=== PATIENT | male | born 1945 | race African-American/Black ===

== ENCOUNTER 2016-05-30 10:54 | Emergency (ER) | payer OTHER, BC ==
--- NOTE | 2016-05-30 12:03 | ER Document Report ---
ED Medical Screen (RME) - General Chief Complaint: Dizziness Stated Complaint: POSSIBLE SYNCOPE Notes: This 70-year-old male patient brought to the emergency room by EMS for dizzy spell that started while he was walking on a treadmill in the gym. He had been walking about 20 minutes when the symptoms started and he got himself to a sitting position. EMS showed up and did tilts which were reportedly positive. He reports the symptoms lasted total of 10-12 minutes and then resolved. They did not resolve immediately but slowly resolved. He also noted his lef jerking or quivering at one point. He does have a history of hypertension, hyperlipidemia, and is being worked up for tremor. He is also has an appointment with a territory business manager for constipation issues. There was no chest pain, no shortness of breath, at this time he feels completely normal I have greeted and performed a rapid initial assessment of this patient. A comprehensive ED assessment and evaluation of the patient, analysis of test results and completion of the medical decision making process will be conducted by additional ED providers. TRAVEL OUTSIDE OF THE [place] IN LAST 30 DAYS: No - Related Data Allergies/Adverse Reactions: No Known Allergies Allergy (Verified 05/30/16 11:29) Home Medications: Current Home Medications Clonidine HCl [Clonidine HCl ER] 0.1 mg PO DAILY 05/30/16 [History] Hydrochlorothiazide 25 mg PO DAILY 05/30/16 [History] Methimazole [Methimazole] 10 mg PO DAILY 05/30/16 [History] Nifedipine [Procardia Xl] 90 mg PO DAILY 05/30/16 [History] Past Medical History - Social History Family history: DM, Hypertension, Malignancy - Past Medical History Cardiac Medical History: Reports: Hx Coronary Artery Disease, Hx Hypertension Denies: Hx Heart Attack Pulmonary Medical History: Denies: Hx Asthma, Hx Bronchitis, Hx COPD, Hx Pneumonia Neurological Medical History: Denies: Hx Cerebrovascular Accident, Hx Seizures Endocrine Medical History: Reports: Hx Diabetes Mellitus Type 2, Hx Hypothyroidism Renal/ Medical History: Reports: Hx Kidney Stones - left kidney cacer and removed protate cancer and removed. Denies: Hx Peritoneal Dialysis Malignancy Medical History: Reports Hx Prostate Cancer, Reports Hx Renal (Kidney ) Cancer Musculoskeltal Medical History: Denies Hx Arthritis, Reports Hx Musculoskeletal Deformity, Reports Hx Musculoskeletal Trauma Traumatic Medical History: Reports: Hx Fractures Past Surgical History: Reports: Hx Kidney (Renal Surgery), Hx Orthopedic Surgery - Immunizations Immunizations up to date: Yes Hx Diphtheria, Pertussis, Tetanus Vaccination: Yes Physical Exam - Vital signs Vitals: Temp Pulse Resp BP Pulse Ox 97.9 F 75 14 124/79 98 05/30/16 11:31 05/30/16 11:31 05/30/16 11:31 05/30/16 11:31 05/30/16 11:31 Course - Vital Signs Vital signs: Temp Pulse Resp BP Pulse Ox 97.9 F 75 14 124/79 98 05/30/16 11:31 05/30/16 11:31 05/30/16 11:31 05/30/16 11:31 05/30/16 11:31
[2016-05-30 12:33] LABS: ABSOLUTE BASOPHILS # (AUTO) 0.1 10^3/uL (0.0-0.2); ABSOLUTE EOSINOPHILS # (AUTO) 0.2 10^3/uL (0.0-0.6); ABSOLUTE LYMPHOCYTES (AUTO) 1.7 10^3/uL (0.5-4.7); ABSOLUTE MONOCYTES (AUTO) 0.3 10^3/uL (0.1-1.4); ABSOLUTE NEUT (AUTO) 1.9 10^3/uL (1.7-8.2); BASOPHILS % (AUTO) 1.7 % (0-2); EOSINOPHILS % (AUTO) 3.9 % (0-6); HEMATOCRIT 41.2 % (37.9-51.0); HEMOGLOBIN 13.2 g/dL (13.5-17.0); HGB HCT DIFFERENCE -1.6; LYMPHOCYTES % (AUTO) 40.8 % (13-45); MEAN CORPUSCULAR HEMOGLOBIN 26.3 pg (27.0-33.4); MEAN CORPUSCULAR HGB CONC 31.9 g/dL (32.0-36.0); MEAN CORPUSCULAR VOLUME 83 fl (80-97); MONOCYTES % (AUTO) 7.6 % (3-13); RED BLOOD COUNT 4.99 10^6/uL (4.35-5.55); WHITE BLOOD COUNT 4.1 10^3/uL (4.0-10.5)
[2016-05-30 12:46] LABS: ALANINE AMINOTRANSFERASE 24 U/L (21-72); ALBUMIN 3.9 g/dL (3.5-5.0); ALKALINE PHOSPHATASE 78 U/L (38-126); ANION GAP 9 (5-19); ASPARTATE AMINO TRANSFERASE 16 U/L (17-59); BILIRUBIN,TOTAL 0.9 mg/dL (0.2-1.3); BLOOD UREA NITROGEN 19 mg/dL (7-20); CALCIUM 9.6 mg/dL (8.4-10.2); CARBON DIOXIDE 30 mmol/L (22-30); CHLORIDE 103 mmol/L (98-107); CREATINE KINASE 80 U/L (55-170); CREATININE RESULT 1.45 mg/dL (0.52-1.25); GLUCOSE 98 mg/dL (75-110); POTASSIUM 4.3 mmol/L (3.6-5.0); SODIUM 141.6 mmol/L (137-145)
[2016-05-30 12:57] LABS: CREATINE KINASE MB < 0.22 ng/mL (<4.55); TROPONIN I < 0.012 ng/mL
[2016-05-30 12:59] LABS: APPEARANCE,URINE CLEAR; BILIRUBIN,URINE NEGATIVE (NEGATIVE); GLUCOSE, URINE NEGATIVE (NEGATIVE); KETONES,URINE NEGATIVE (NEGATIVE); LEUKOCYTE ESTERASE,URINE NEGATIVE (NEGATIVE); NITRITE,URINE NEGATIVE (NEGATIVE); PROTEIN,URINE NEGATIVE (NEGATIVE); URINE SPECIFIC GRAVITY 1.025
--- NOTE | 2016-05-30 13:09 | ER Document Report ---
ED Dizziness/Weakness - General Chief Complaint: Dizziness Stated Complaint: POSSIBLE SYNCOPE Mode of Arrival: Medic Information source: Patient TRAVEL OUTSIDE OF THE [place] IN LAST 30 DAYS: No - HPI Patient complains to provider of: Dizziness, Near-syncope Onset: Just prior to arrival Quality of pain: No pain Associated symptoms: Dizzy, Almost fainted, Lightheaded. denies: Chest pain, Confused, Diarrhea, Ear pain, Fainted, Headache, Hearing loss, Less responsive, Loss of motor function, Loss of strength, Loss of sensation, Nausea, Palpitations, Paralysis, Recent fall, Recent trauma, Vomiting Notes: Patient arrives via EMS with complaints of feeling like he was going to pass out. The patient states that he was walking on the treadmill which he does approximate 3 times a week when he started to feel like he was going to pass out. He denies any chest pain, shortness of breath, diaphoresis. There was no syncope or injury. States that this lasted approximately 15 minutes. And resolved spontaneously. He denies any symptoms currently. He denies any headache, blurred vision, numbness tingling or weakness. No rash. He denies any fever. He denies any dysuria or hematuria. Denies any history of active cancer, recent trips or surgeries, leg pain and leg swelling, history of DVT or PE. This point the patient states that he feels just fine. - Related Data Allergies/Adverse Reactions: No Known Allergies Allergy (Verified 05/30/16 11:29) Home Medications: Current Home Medications Clonidine HCl [Clonidine HCl ER] 0.1 mg PO DAILY 05/30/16 [History] Hydrochlorothiazide 25 mg PO DAILY 05/30/16 [History] Methimazole [Methimazole] 10 mg PO DAILY 05/30/16 [History] Nifedipine [Procardia Xl] 90 mg PO DAILY 05/30/16 [History] Past Medical History - Social History Smoking Status: Never Smoker Chew tobacco use (# tins/day): No Frequency of alcohol use: None Drug Abuse: None Family History: Reviewed & Not Pertinent Patient has suicidal ideation: No Patient has homicidal ideation: No - Past Medical History Cardiac Medical History: Reports: Hx Coronary Artery Disease, Hx Hypertension Denies: Hx Heart Attack Pulmonary Medical History: Denies: Hx Asthma, Hx Bronchitis, Hx COPD, Hx Pneumonia Neurological Medical History: Denies: Hx Cerebrovascular Accident, Hx Seizures Endocrine Medical History: Reports: Hx Diabetes Mellitus Type 2, Hx Hypothyroidism Renal/ Medical History: Reports: Hx Kidney Stones - left kidney cacer and removed protate cancer and removed. Denies: Hx Peritoneal Dialysis Malignancy Medical History: Reports Hx Prostate Cancer, Reports Hx Renal (Kidney ) Cancer Musculoskeltal Medical History: Denies Hx Arthritis, Reports Hx Musculoskeletal Deformity, Reports Hx Musculoskeletal Trauma Traumatic Medical History: Reports: Hx Fractures Past Surgical History: Reports: Hx Kidney (Renal Surgery), Hx Orthopedic Surgery - Immunizations Immunizations up to date: Yes Hx Diphtheria, Pertussis, Tetanus Vaccination: Yes Review of Systems - Review of Systems -: Yes All other systems reviewed and negative Physical Exam - Vital signs Vitals: Temp Pulse Resp BP Pulse Ox 97.9 F 75 14 124/79 98 05/30/16 11:31 05/30/16 11:31 05/30/16 11:31 05/30/16 11:31 05/30/16 11:31 - General General appearance: Appears well, Alert - HEENT Head: Normocephalic, Atraumatic Eyes: Normal Extraocular movements intact: Yes Pupils: PERRL Mucous membranes: Normal - Respiratory Respiratory status: No respiratory distress Breath sounds: Normal - Cardiovascular Rhythm: Regular Heart sounds: Normal auscultation Murmur: No - Abdominal Inspection: Normal Distension: No distension Bowel sounds: Normal Tenderness: Nontender Organomegaly: No organomegaly - Back Back: Normal, Nontender - Extremities General upper extremity: Normal inspection, Nontender, Normal color, Normal ROM , Normal temperature. No: Tender, Edema General lower extremity: Normal inspection, Nontender, Normal color, Normal ROM , Normal temperature, Normal weight bearing. No: Tender, Edema - Neurological Neuro grossly intact: Yes Cognition: Normal Orientation: AAOx4 [place] Coma Scale Eye Opening: Spontaneous Mike Coma Scale Verbal: Oriented Mike Coma Scale Motor: Obeys Commands Mike Coma Scale Total: 15 Speech: Normal Motor strength normal: LUE, RUE, LLE, RLE Sensory: Normal - Psychological Associated symptoms: Normal affect, Normal mood - Skin Skin Temperature: Warm Skin Moisture: Dry Skin Color: Normal Course - Re-evaluation Re-evalutation: 05/30/16 14:12 Patient resting comfortably at this time. EKG is unremarkable. Initial troponin is negative. Creatinine is 1.45 which is stable for this patient. He was given a 500 mL bolus of normal saline. He is oriented to have mild orthostatic changes in his blood pressure, he went from 139 systolically to 113 from lying to standing. No change in heart rate. Patient has no complaints currently, no chest pain, no dizziness. We will repeat a troponin and EKG, the repeat EKG and troponin are negative, we will consider discharging the patient home with outpatient follow-up. We will continue to monitor at this time. 05/30/16 15:47 Repeat EKG shows sinus rhythm with a ventricular rate of 81 with no signs of acute ischemia and no change from prior EKG done today. 05/30/16 16:55 Patient's nontoxic and stable vitals. Patient became dizzy and had a near syncopal episode while walking on a treadmill earlier today. There was no associated chest pain shortness of breath or diaphoresis. Patient denies any dizziness chest pain or shortness of breath here in the emergency department. EKG shows no acute abnormality. Mildly orthostatic. Creatinine is elevated which is stable for him. Repeat EKG and troponin remained negative. The patient remained stable here in the emergency department with no complaints. This point the patient will be discharged home with instructions to follow-up with his primary care doctor at the next available appointment for recheck. He' ll also be referred to cardiology as well. He should return to the emergency department should he have chest pain, shortness of breath, pass out, or have any further concerns. The patient is noted to have elevated blood pressure during today's emergency department visit. The patient was informed of this finding. The patient was instructed that this may be related to pre-hypertension and requires further evaluation with a primary care provider. The patient has no hypertensive symptoms at this time. The patient's emergency department workup and current diagnosis were explained to the patient and or family. Follow-up instructions were provided. Medications if prescribed were discussed. Instructions for when to return to the emergency department including specific worrisome symptoms were discussed with the patient and/or family. - Vital Signs Vital signs: Temp Pulse Resp BP Pulse Ox 97.9 F 78 14 139/87 H 97 05/30/16 11:31 05/30/16 13:50 05/30/16 11:31 05/30/16 13:50 05/30/16 13:33 - Laboratory Result Diagrams: 05/30/16 12:05 05/30/16 12:05 Laboratory results interpreted by me: 05/30/16 05/30/16 05/30/16 12:05 12:05 12:05 Hgb 13.2 L MCH 26.3 L MCHC 31.9 L RDW 17.0 H Creatinine 1.45 H Est GFR ( Amer) 58 L Est GFR (Non-Af Amer) 48 L AST 16 L Urine Urobilinogen 2.0 H Urine Ascorbic Acid 40 H - EKG Interpretation by Me EKG shows normal: Sinus rhythm, [place], Intervals, QRS Complexes, ST-T Waves Additional EKG results interpreted by me: 05/30/16 13:35 PVCs Discharge - Discharge Clinical Impression: Near syncope Condition: Stable Disposition: HOME, SELF-CARE Instructions: Near Syncopal Episode ([facility]) Additional Instructions: Follow-up with your family doctor at the next available appointment. Follow up with cardiology at next available appointment. History of drinking plenty of fluids. Follow-up sooner for chest pain, shortness of breath, passing out, high fevers, numbness, tingling, weakness, any further concerns. Your blood pressure was elevated during today's visit. Have this rechecked with your doctor. Forms: Elevated Blood Pressure Referrals: MAREK CAMP MD [Primary Care Provider] - Follow up as needed MAGALY EVANS MD [ACTIVE STAFF] - Follow up as needed
[2016-05-30] MEDS ORDERED: NORMAL SALINE 1000 ML 500 ML IV ONE (13:56)
[2016-05-30 17:07] VITALS: BP 142/97
--- NOTE | 2016-05-31 15:45 | EKG REPORT ---
SEVERITY:- ABNORMAL ECG - SINUS RHYTHM VENTRICULAR TRIGEMINY : Confirmed by: Magi Huynh MD 31-May-2016 15:44:52
--- NOTE | 2016-05-31 15:45 | EKG REPORT ---
SEVERITY:- NORMAL ECG - SINUS RHYTHM : Confirmed by: Magi Huynh MD 31-May-2016 15:44:45
== END 2016-05-30 17:06 | disposition home or self-care (01) ==
LOC: ER 10:54
DX: R55 Syncope and collapse (principal); I49.3 Ventricular premature depolarization; I25.10 Atherosclerotic heart disease of native coronary artery without angina pectoris; I10 Essential (primary) hypertension; E11.9 Type 2 diabetes mellitus without complications; Z85.528 Personal history of other malignant neoplasm of kidney; Z85.46 Personal history of malignant neoplasm of prostate
CPT/HCPCS: 93005; 99284; 36415; 82553; 82550; 85025; 80053; 81001; 84484; 71020; 93010; J7030

== ENCOUNTER 2016-06-05 20:27 | Emergency (ER) | payer OTHER, BC ==
[2016-06-05] MEDS ORDERED: NORMAL SALINE 1000 ML 500 ML IV ONE (21:24)
--- NOTE | 2016-06-05 21:26 | ER Document Report ---
ED General - General Chief Complaint: Near Syncope Stated Complaint: SYNCOPAL EPISODE Time seen by provider: 21:20 Notes: Patient is a 70-year-old male that comes emergency department for chief complaint of an episode where he almost passed out prior to arrival, the comes by EMS, patient states that he was handed and carrying a bag of groceries when he suddenly felt lightheaded, his vision got blurry, and he states that he slumped down onto a couch without falling or injuring himself. He states that after he was on the couch for several minutes his symptoms resolved and he felt much improved. He states his relative called the ambulance. Patient denies ever feeling any chest pain, getting shortness of breath, having nausea, or any other symptoms. Patient states he had a similar episode when on the treadmill about a week ago. Patient states 2 weeks ago he had one of his blood pressure doses cut in half, but he is unsure which. He denies history of [place], arrhythmia , blood clot, recent travel, recent surgery, or smoking. TRAVEL OUTSIDE OF THE [place] IN LAST 30 DAYS: No - Related Data Allergies/Adverse Reactions: No Known Allergies Allergy (Verified 05/30/16 11:29) Past Medical History - General Information source: Patient - Social History Smoking Status: Never Smoker Chew tobacco use (# tins/day): No Frequency of alcohol use: None Drug Abuse: None Lives with: Family Family History: Reviewed & Not Pertinent Patient has suicidal ideation: No Patient has homicidal ideation: No - Past Medical History Cardiac Medical History: Reports: Hx Coronary Artery Disease, Hx Hypertension Denies: Hx Heart Attack Pulmonary Medical History: Denies: Hx Asthma, Hx Bronchitis, Hx COPD, Hx Pneumonia Neurological Medical History: Denies: Hx Cerebrovascular Accident, Hx Seizures Endocrine Medical History: Reports: Hx Diabetes Mellitus Type 2, Hx Hypothyroidism Renal/ Medical History: Reports: Hx Kidney Stones - left kidney cacer and removed protate cancer and removed. Denies: Hx Peritoneal Dialysis Malignancy Medical History: Reports Hx Prostate Cancer, Reports Hx Renal (Kidney ) Cancer Musculoskeltal Medical History: Denies Hx Arthritis, Reports Hx Musculoskeletal Deformity, Reports Hx Musculoskeletal Trauma Traumatic Medical History: Reports: Hx Fractures Past Surgical History: Reports: Hx Kidney (Renal Surgery), Hx Orthopedic Surgery - Immunizations Immunizations up to date: Yes Hx Diphtheria, Pertussis, Tetanus Vaccination: Yes Review of Systems - Review of Systems Constitutional: No symptoms reported EENT: No symptoms reported Cardiovascular: See HPI Respiratory: No symptoms reported Gastrointestinal: No symptoms reported Genitourinary: No symptoms reported Male Genitourinary: No symptoms reported Musculoskeletal: No symptoms reported Skin: No symptoms reported Hematologic/Lymphatic: No symptoms reported Neurological/Psychological: See HPI Physical Exam - Vital signs Vitals: BP Pulse Ox 150/95 H 99 06/05/16 20:35 06/05/16 20:35 Interpretation: Normal - General General appearance: Appears well, Alert In distress: None - Patient has a small tremor, I asked about this and he states this is his baseline - HEENT Head: Normocephalic, Atraumatic Eyes: Normal Conjunctiva: Normal Extraocular movements intact: Yes Eyelashes: Normal Pupils: PERRL Mouth/Lips: Normal Mucous membranes: Normal Pharynx: Normal Neck: Normal - Respiratory Respiratory status: No respiratory distress Chest status: Nontender Breath sounds: Normal Chest palpation: Normal - Cardiovascular Rhythm: Regular. No: Tachycardia Heart sounds: Normal auscultation, S1 appreciated, S2 appreciated Murmur: No - Abdominal Inspection: Normal Distension: No distension Bowel sounds: Normal Tenderness: Nontender. No: Tender Organomegaly: No organomegaly - Back Back: Normal, Nontender - Extremities General upper extremity: Normal inspection, Nontender, Normal color, Normal ROM , Normal temperature General lower extremity: Normal inspection, Nontender, Normal color, Normal ROM , Normal temperature, Normal weight bearing. No: Tricia's sign - Neurological Neuro grossly intact: Yes Cognition: Normal Orientation: AAOx4 [place] Coma Scale Eye Opening: Spontaneous Mike Coma Scale Verbal: Oriented [place] Coma Scale Motor: Obeys Commands Mike Coma Scale Total: 15 Speech: Normal Cranial nerves: Normal Cerebellar coordination: Normal Motor strength normal: LUE, RUE, LLE, RLE Sensory: Normal - Psychological Associated symptoms: Normal affect, Normal mood - Skin Skin Temperature: Warm Skin Moisture: Dry Skin Color: Normal Course - Re-evaluation Re-evalutation: Monitoring during patient's stay showed no arrhythmia, EKG shows sinus rhythm with no T-wave inversions in consecutive leads or ST segment changes. Machine reads as normal. X-rays unremarkable. Laboratory workup at baseline compared to prior. Patient asymptomatic. Patient has had this same presentation and symptoms within the past week, last time is also with exertion. Patient was given 500 mL bolus, he is not hypotensive or tachycardic. I discussed with Dr. Cash. Patient did not have any chest pain, shortness of breath, or syncope. Patient with no current symptoms or complaints. Low suspicion of acute coronary syndrome, pulmonary embolism, or life-threatening arrhythmia. Patient is already on Procardia. After discussion and full discussion with patient and significant other, patient will be discharged home, patient is to follow closely this time with cardiology for additional management, discussed return precautions in detail. Patient and state understanding and agreement. - Vital Signs Vital signs: Temp Pulse Resp BP Pulse Ox 98.0 F 92 16 167/95 H 99 06/05/16 21:00 06/05/16 21:00 06/05/16 21:00 06/05/16 23:01 06/05/16 23:01 - Laboratory Result Diagrams: 06/05/16 20:45 06/05/16 20:45 Laboratory results interpreted by me: 06/05/16 06/05/16 20:45 20:45 Hgb 12.2 L MCH 25.9 L MCHC 31.5 L RDW 16.3 H Seg Neutrophils % 31.9 L Lymphocytes % 55.5 H Creatinine 1.49 H Est GFR ( Amer) 57 L Est GFR (Non-Af Amer) 47 L Discharge - Discharge Clinical Impression: Near syncope Condition: Stable Disposition: HOME, SELF-CARE Additional Instructions: No abnormalities are seen on your workup and evaluation today. Stay hydrated. Since this has occurred only when you are exerting, I recommend reducing/avoiding exertion until evaluated by cardiology. Please call today for a close follow-up. Please return immediately if he develops any concerning symptoms including chest pain, shortness breath, vomiting, or passing out. Forms: Elevated Blood Pressure Referrals: MAREK CAMP MD [Primary Care Provider] - Follow up as needed MAGALY EVANS MD [ACTIVE STAFF] - Follow up tomorrow YE DIAZ MD [ACTIVE STAFF] - Follow up tomorrow
[2016-06-05 21:37] LABS: ABSOLUTE EOSINOPHILS # (AUTO) 0.2 10^3/uL (0.0-0.6); ABSOLUTE MONOCYTES (AUTO) 0.4 10^3/uL (0.1-1.4); ABSOLUTE NEUT (AUTO) 1.7 10^3/uL (1.7-8.2); BASOPHILS % (AUTO) 0.9 % (0-2); EOSINOPHILS % (AUTO) 4.5 % (0-6); HEMATOCRIT 38.7 % (37.9-51.0); HEMOGLOBIN 12.2 g/dL (13.5-17.0); HGB HCT DIFFERENCE -2.1; LYMPHOCYTES % (AUTO) 55.5 % (13-45); MEAN CORPUSCULAR HEMOGLOBIN 25.9 pg (27.0-33.4); MEAN CORPUSCULAR HGB CONC 31.5 g/dL (32.0-36.0); MEAN CORPUSCULAR VOLUME 82 fl (80-97); MONOCYTES % (AUTO) 7.2 % (3-13); RED BLOOD COUNT 4.71 10^6/uL (4.35-5.55); RED CELL DISTRIBUTION WIDTH 16.3 % (11.5-14.0); SEGMENTED NEUTROPHILS % (AUTO) 31.9 % (42-78); WHITE BLOOD COUNT 5.4 10^3/uL (4.0-10.5)
[2016-06-05 21:44] LABS: ALANINE AMINOTRANSFERASE 28 U/L (21-72); ALBUMIN 3.9 g/dL (3.5-5.0); ALKALINE PHOSPHATASE 77 U/L (38-126); ANION GAP 10 (5-19); ASPARTATE AMINO TRANSFERASE 20 U/L (17-59); BILIRUBIN,DIRECT 0.4 mg/dL (0.0-0.4); BLOOD UREA NITROGEN 20 mg/dL (7-20); CALCIUM 9.3 mg/dL (8.4-10.2); CARBON DIOXIDE 29 mmol/L (22-30); CHLORIDE 102 mmol/L (98-107); CREATINE KINASE 139 U/L (55-170); CREATININE RESULT 1.49 mg/dL (0.52-1.25); GLUCOSE 95 mg/dL (75-110); POTASSIUM 4.3 mmol/L (3.6-5.0); SODIUM 140.9 mmol/L (137-145); TOTAL PROTEIN 7.4 g/dL (6.3-8.2)
[2016-06-05 21:56] LABS: CREATINE KINASE MB 0.26 ng/mL (<4.55); TROPONIN I < 0.012 ng/mL
[2016-06-05 23:11] VITALS: BP 167/95
--- NOTE | 2016-06-06 07:36 | EKG REPORT ---
SEVERITY:- NORMAL ECG - SINUS RHYTHM : Confirmed by: Bernardo Yi MD 06-Jun-2016 07:35:45
== END 2016-06-06 01:37 | disposition home or self-care (01) ==
LOC: ER 20:27
DX: R55 Syncope and collapse (principal); R42 Dizziness and giddiness; H53.8 Other visual disturbances
CPT/HCPCS: 93005; 99284; 36415; 82553; 82962; 82550; 85025; 80053; 84484; 71010; 93010; J7030

== ENCOUNTER → 2016-06-05 | Outpatient (CLI) | payer OTHER, BC | LOC: RAD 10:27 | PROVIDERS: ATTEND Internal Medicine Nephrology | DX: N18.3 Chronic kidney disease, stage 3 (moderate) (principal); C61 Malignant neoplasm of prostate; Z90.5 Acquired absence of kidney | CPT/HCPCS: 76770 ==

== ENCOUNTER → 2016-06-25 | Outpatient (CLI) | payer MEDICARE, OTHER, BC ==
[2016-06-25 10:17] LABS: HEMATOCRIT 40.4 % (37.9-51.0); HEMOGLOBIN 12.8 g/dL (13.5-17.0); MEAN CORPUSCULAR HGB CONC 31.8 g/dL (32.0-36.0); MEAN CORPUSCULAR VOLUME 82 fl (80-97); RED BLOOD COUNT 4.94 10^6/uL (4.35-5.55); RED CELL DISTRIBUTION WIDTH 16.9 % (11.5-14.0); WHITE BLOOD COUNT 4.4 10^3/uL (4.0-10.5)
[2016-06-25 10:33] LABS: APPEARANCE,URINE CLEAR; BILIRUBIN,URINE NEGATIVE (NEGATIVE); GLUCOSE, URINE NEGATIVE (NEGATIVE); KETONES,URINE NEGATIVE (NEGATIVE); LEUKOCYTE ESTERASE,URINE NEGATIVE (NEGATIVE); NITRITE,URINE NEGATIVE (NEGATIVE); PROTEIN,URINE NEGATIVE (NEGATIVE); URINE SPECIFIC GRAVITY 1.016
[2016-06-25 10:36] LABS: ANION GAP 13 (5-19); BLOOD UREA NITROGEN 15 mg/dL (7-20); CALCIUM 9.5 mg/dL (8.4-10.2); CARBON DIOXIDE 29 mmol/L (22-30); CHLORIDE 102 mmol/L (98-107); CREATININE RESULT 1.43 mg/dL (0.52-1.25); GLUCOSE 109 mg/dL (75-110); POTASSIUM 3.7 mmol/L (3.6-5.0); SODIUM 143.5 mmol/L (137-145)
== END ==
LOC: LAB 09:46
PROVIDERS: ATTEND Internal Medicine Nephrology
DX: I12.9 Hypertensive chronic kidney disease with stage 1 through stage 4 chronic kidney disease, or unspecified chronic kidney disease (principal); N18.3 Chronic kidney disease, stage 3 (moderate)
CPT/HCPCS: 36415; 80048; 81001; 85027

== ENCOUNTER → 2016-08-22 | Outpatient (CLI) | payer OTHER ==
--- NOTE | 2016-08-22 11:01 | RADIOLOGY REPORT (SQ) ---
EXAM DESCRIPTION: MRI HEAD WITHOUT COMPLETED DATE/TIME: 08/22/2016 10:20 am REASON FOR STUDY: DIZZINESS R42 DIZZINESS AND GIDDINESS COMPARISON: CT brain 09/21/2009, 06/05/2012 TECHNIQUE: Multiplanar imaging includes non-contrasted T1, T2, FLAIR, and diffusion with ADC map seq uences. Images stored on PACS. LIMITATIONS: None. FINDINGS: ANATOMY: Benign thin-walled cranial cyst of doubtful clinical significance, 1.6 cm AP x 1 cm transverse by 0.9 cm craniocaudad. Normal vascular flow voids. Pituitary fossa normal. CSF SPACES: Normal in size and contour. No hemorrhage. CEREBRUM: Sulci and gyri normal in size and contour. Normal white matter signal on FLAIR imaging. No evidence of hemorrhage, mass, or extraaxial fluid collection. POSTERIOR FOSSA: No signal alteration. No hemorrhage. No edema, masses or mass effect. Internal doron tory canals, cerebello-pontine angles, mastoids normal. DIFFUSION IMAGING: Negative for acute or sub-acute infarction. ORBITS: No masses. Globes normal. PARANASAL SINUSES: Minimal mucous membrane thickening in the bilateral frontal and right posterior e thmoid air cells. Bilateral maxillary sinus mucus or serous retention cysts. OTHER: No other significant finding. IMPRESSION: ESSENTIALLY NORMAL MRI OF THE BRAIN WITHOUT INTRAVENOUS GADOLINIUM CONTRAST. TECHNICAL DOCUMENTATION: JOB ID: [id number]- All Rights Reserved
== END ==
LOC: RAD 08:35
PROVIDERS: ATTEND Family Medicine
DX: R42 Dizziness and giddiness (principal)
CPT/HCPCS: 70551

== ENCOUNTER → 2016-10-12 | Outpatient (CLI) | payer MEDICARE, OTHER, BC ==
--- NOTE | 2016-10-12 12:45 | RADIOLOGY REPORT (SQ) ---
EXAM DESCRIPTION: U/S RETROPERITON (RENAL/AORTA) COMPLETED DATE/TIME: 10/12/2016 11:53 am REASON FOR STUDY: GROSS HEMATURIA (R31.0), CKD II (N18.2), PERSONAL HX OF KIDNEY CA (Z85.528) R31.0 GROSS HEMATURIA N18.2 CHRONIC KIDNEY DISEASE, STAGE 2 (MILD) Z85.528 PERSONAL HISTORY OF OTHER MAL IGNANT NEOPLASM OF KIDN COMPARISON: 06/05/2016 TECHNIQUE: Dynamic and static grayscale images acquired of the kidneys and bladder and recorded on P ACS. Additional selected color Doppler and spectral images recorded. LIMITATIONS: None. FINDINGS: RIGHT KIDNEY: Normal size, 11.7 cm. Normal echogenicity. No solid or suspicious masses ; t here appears to be a prominent column of [place]. There is a 14 mm cyst. No hydronephrosis. No calci fications. LEFT KIDNEY: Surgically absent. BLADDER: Bladder was not filled and cannot be evaluated. OTHER FINDINGS: No other significant finding. IMPRESSION: There appears to be a prominent column of [place] in the right kidney. However, given hi story of gross hematuria given the lack of findings to explain that hematuria, consider CT without an d with contrast for further evaluation of the kidney. Consider MRI. TECHNICAL DOCUMENTATION: JOB ID: [id number] [employer]- All Rights Reserved
== END ==
LOC: RAD 11:13
PROVIDERS: ATTEND Physician Assistant
DX: R31.0 Gross hematuria (principal); N18.2 Chronic kidney disease, stage 2 (mild); Z85.528 Personal history of other malignant neoplasm of kidney
CPT/HCPCS: 76770

== ENCOUNTER → 2016-10-17 | Outpatient (CLI) | payer OTHER, BC ==
--- NOTE | 2016-10-17 10:17 | RADIOLOGY REPORT (SQ) ---
EXAM DESCRIPTION: CT ABD/PELVIS NO ORAL OR IV COMPLETED DATE/TIME: 10/17/2016 9:04 am REASON FOR STUDY: GROSS HEMATURIA (R31.0) R31.0 GROSS HEMATURIA COMPARISON: CT ABDOMEN AND PELVIS 04/27/2007, 03/10/2012 RENAL ULTRASOUND 06/05/2016, 10/12/2016 SET TECHNIQUE: CT scan of the abdomen and pelvis performed without intravenous or oral contrast. Images reviewed with lung, soft tissue, and bone windows. Reconstructed coronal and sagittal MPR images revi ewed. All images stored on PACS. All CT scanners at this facility use dose modulation, iterative reconstruction, and/or weight based d osing when appropriate to reduce radiation dose to as low as reasonably achievable (ALARA). [facility]: Dose Right [facility]: CareDose [facility]: Dose Right [facility]: Teradose 4D [facility]: Smart FIRE1 RADIATION DOSE: Up-to-date CT equipment and radiation dose reduction techniques were employed. CTDIv ol: 5.4 mGy. DLP: 288 mGy-cm.mGy. LIMITATIONS: No IV contrast FINDINGS: LOWER CHEST: Stable mild bandlike atelectasis or scarring at both lung bases NON-CONTRASTED LIVER, SPLEEN, ADRENALS: Evaluation limited by lack of IV contrast. No identified sign ificant masses. PANCREAS: No masses. No peripancreatic inflammatory changes. GALLBLADDER: No identified stones by CT criteria. No inflammatory changes to suggest cholecystitis. RIGHT KIDNEY AND URETER: No suspicious masses. Assessment limited by lack of IV contrast. No signif icant calcifications. No hydronephrosis or hydroureter. LEFT KIDNEY AND URETER: Post left nephrectomy AORTA AND RETROPERITONEUM: No aneurysm. No retroperitoneal masses or adenopathy. BOWEL AND PERITONEAL CAVITY: No obvious masses or inflammatory changes. No free fluid. APPENDIX: Normal. PELVIS, BLADDER, AND ABDOMINAL WALL:No abnormal masses. No free fluid. Bladder normal. Post prostate ctomy BONES: Stable sclerotic lesions in the bilateral innominate bones, right and left ischium, and L2 murray tebral body, similar compared to 04/27/2007. OTHER: No other significant finding. IMPRESSION: Post left nephrectomy. Non contrasted images of the right kidney ureter and bladder are unremarkable. No CT findings to explain history of hematuria. TECHNICAL DOCUMENTATION: JOB ID: [id number] Quality ID # [id number]: Final reports with documentation of one or more dose reduction techniques (e.g., Au tomated exposure control, adjustment of the mA and/or kV according to patient size, use of iterative reconstruction technique) 2010 [employer]- All Rights Reserved
== END ==
LOC: RAD 08:51
PROVIDERS: ATTEND Family Medicine
DX: R31.0 Gross hematuria (principal)
CPT/HCPCS: 74176

== ENCOUNTER 2018-04-19 11:30 | Observation (INO) | payer MEDICARE, OTHER, BC ==
--- NOTE | 2018-04-19 11:50 | ER Document Report ---
ED Medical Screen (RME) - General Chief Complaint: Psych Problem Stated Complaint: HALLUCINATIONS Time Seen by Provider: 04/19/18 11:42 Primary Care Provider: MAREK CAMP MD [Primary Care Provider] - Follow up as needed Notes: Patient is a 72-year-old male with hypertension that presents to the emergency department for chief complaint of hallucinations and confusion. Patient started having hallucinations of seeing people last night and different figures, which she is never had before, he was told by friends last week that he may have had slurred speech, but according to his family at bedside they state is normal now. ROS: Other than noted above, the 12 point review of systems was reviewed with the patient and were negative, all pertinent findings are included in the HPI. PHYSICAL EXAMINATION: Vital signs reviewed. GENERAL: Well-appearing, well-nourished and in no acute distress. HEAD: Atraumatic, normocephalic. EYES: Pupils equal round extraocular movements intact, conjunctiva are normal. ENT: Nares patent NECK: Normal range of motion CV: Heart regular rate and rhythm LUNGS: No respiratory distress Musculoskeletal: Normal range of motion NEUROLOGICAL: Normal speech PSYCH: Normal mood, normal affect. MDM: Patient seen and examined for rapid initial assessment. Vital signs reviewed. A comprehensive ED assessment and evaluation of the patient, analysis of test results and completion of the medical decision making process will be conducted by additional ED providers. *Note is created using voice recognition software and may contain spelling, syntax or grammatical errors. TRAVEL OUTSIDE OF THE [place] IN LAST 30 DAYS: No - Related Data Allergies/Adverse Reactions: No Known Allergies Allergy (Verified 04/19/18 11:46) Past Medical History - Social History Chew tobacco use (# tins/day): No Frequency of alcohol use: None Drug Abuse: None Family history: DM, Hypertension, Malignancy - Past Medical History Cardiac Medical History: Reports: Hx Coronary Artery Disease, Hx Hypertension Denies: Hx Heart Attack Pulmonary Medical History: Denies: Hx Asthma, Hx Bronchitis, Hx COPD, Hx Pneumonia Neurological Medical History: Denies: Hx Cerebrovascular Accident, Hx Seizures Endocrine Medical History: Reports: Hx Diabetes Mellitus Type 2, Hx Hy pothyroidism Renal/ Medical History: Reports: Hx Kidney Stones - left kidney cacer and removed protate cancer and removed. Denies: Hx Peritoneal Dialysis Malignancy Medical History: Reports Hx Prostate Cancer, Reports Hx Renal (Kidney) Cancer Musculoskeltal Medical History: Denies Hx Arthritis, Reports Hx Musculoskeletal Deformity, Reports Hx Musculoskeletal Trauma Traumatic Medical History: Reports: Hx Fractures Past Surgical History: Reports: Hx Kidney (Renal Surgery), Hx Orthopedic Surgery - Immunizations Immunizations up to date: Yes Hx Diphtheria, Pertussis, Tetanus Vaccination: Yes Doctor's Discharge - Discharge Referrals: MAREK CAMP MD [Primary Care Provider] - Follow up as needed
[2018-04-19 12:39] LABS: ABSOLUTE BASOPHILS # (AUTO) 0.1 10^3/uL (0.0-0.2); ABSOLUTE EOSINOPHILS # (AUTO) 0.1 10^3/uL (0.0-0.6); ABSOLUTE LYMPHOCYTES (AUTO) 1.6 10^3/uL (0.5-4.7); ABSOLUTE MONOCYTES (AUTO) 0.5 10^3/uL (0.1-1.4); ABSOLUTE NEUT (AUTO) 3.1 10^3/uL (1.7-8.2); BASOPHILS % (AUTO) 1.3 % (0-2); EOSINOPHILS % (AUTO) 1.2 % (0-6); HEMATOCRIT 35.7 % (37.9-51.0); HEMOGLOBIN 11.6 g/dL (13.5-17.0); LYMPHOCYTES % (AUTO) 30.7 % (13-45); MEAN CORPUSCULAR HEMOGLOBIN 27.3 pg (27.0-33.4); MEAN CORPUSCULAR HGB CONC 32.5 g/dL (32.0-36.0); MEAN CORPUSCULAR VOLUME 84 fl (80-97); MONOCYTES % (AUTO) 8.6 % (3-13); PLATELET COUNT 247 10^3/uL (150-450); RED BLOOD COUNT 4.24 10^6/uL (4.35-5.55); RED CELL DISTRIBUTION WIDTH 15.5 % (11.5-14.0); SEGMENTED NEUTROPHILS % (AUTO) 58.2 % (42-78); TOTAL CELLS COUNTED % (AUTO) 100 %; WHITE BLOOD COUNT 5.3 10^3/uL (4.0-10.5)
[2018-04-19 12:41] LABS: INTERNATIONAL RATION (INR) 1.04; PROTHROMBIN TIME 14.1 SEC (11.4-15.4)
[2018-04-19 12:51] LABS: ALANINE AMINOTRANSFERASE 15 U/L (21-72); ALKALINE PHOSPHATASE 92 U/L (38-126); ANION GAP 7 (5-19); ASPARTATE AMINO TRANSFERASE 17 U/L (17-59); BILIRUBIN,DIRECT 0.2 mg/dL (0.0-0.4); BILIRUBIN,TOTAL 0.8 mg/dL (0.2-1.3); BLOOD UREA NITROGEN 14 mg/dL (7-20); CALCIUM 9.4 mg/dL (8.4-10.2); CARBON DIOXIDE 29 mmol/L (22-30); CHLORIDE 106 mmol/L (98-107); CREATINE KINASE 155 U/L (55-170); GLUCOSE 101 mg/dL (75-110); POTASSIUM 4.3 mmol/L (3.6-5.0); SODIUM 142.3 mmol/L (137-145); TOTAL PROTEIN 7.1 g/dL (6.3-8.2)
[2018-04-19 12:52] LABS: ACETAMINOPHEN < 10 ug/mL (10-30); ALCOHOL < 10 mg/dL (NONE DETECTED); SALICYLATE < 1.0 mg/dL (2.0-20.0)
--- NOTE | 2018-04-19 12:59 | RADIOLOGY REPORT (SQ) ---
EXAM DESCRIPTION: CT HEAD WITHOUT COMPLETED DATE/TIME: 04/19/2018 12:46 pm REASON FOR STUDY: visual hallucinations COMPARISON: None. TECHNIQUE: Axial images acquired through the brain without intravenous contrast. Images reviewed wi th bone, brain and subdural windows. Additional sagittal and coronal reconstructions were generated. Images stored on PACS. All CT scanners at this facility use dose modulation, iterative reconstruction, and/or weight based d osing when appropriate to reduce radiation dose to as low as reasonably achievable (ALARA). [facility]: Dose Right [facility]: CareDose [facility]: Dose Right [facility]: Teradose 4D [facility]: [employer] RADIATION DOSE: CT Rad equipment meets quality standard of care and radiation dose reduction techniq ues were employed. CTDIvol: 23.1 mGy. DLP: 476 mGy-cm. mGy. LIMITATIONS: None. FINDINGS: VENTRICLES: Prominent. CEREBRUM: No masses. No hemorrhage. No midline shift. Areas of low density in the white matter mos t likely due to chronic micro-vascular ischemic change. No evidence for acute infarction. CEREBELLUM: No masses. No hemorrhage. No alteration of density. No evidence for acute infarction. EXTRAAXIAL SPACES: Mild age-related involutional change. No fluid collections. No masses. ORBITS AND GLOBE: No intra- or extraconal masses. Normal contour of globe without masses. CALVARIUM: No fracture. PARANASAL SINUSES: No fluid or mucosal thickening. SOFT TISSUES: No mass or hematoma. OTHER: No other significant finding. IMPRESSION: MILD CHRONIC CHANGES OF ATROPHY AND MICROVASCULAR ISCHEMIA. NO ACUTE PROCESS. EVIDENCE OF ACUTE STROKE: NO. TECHNICAL DOCUMENTATION: JOB ID: [id number] Quality ID # [id number]: Final reports with documentation of one or more dose reduction techniques (e.g., Au tomated exposure control, adjustment of the mA and/or kV according to patient size, use of iterative reconstruction technique) 2010 [email or web address]- All Rights Reserved Reading location - IP/workstation name: [email or web address]
--- NOTE | 2018-04-19 13:07 | RADIOLOGY REPORT (SQ) ---
EXAM DESCRIPTION: CHEST SINGLE VIEW COMPLETED DATE/TIME: 04/19/2018 12:48 pm REASON FOR STUDY: altered mental status COMPARISON: 05/30/2016 TECHNIQUE: Single frontal radiographic view of the chest acquired. NUMBER OF VIEWS: One view. LIMITATIONS: None. FINDINGS: LUNGS AND PLEURA: No pneumothorax. No consolidation or pleural effusion. MEDIASTINUM AND HILAR STRUCTURES: Stable. HEART AND VASCULAR STRUCTURES: Stable. BONES: No acute findings. HARDWARE: None in the chest. OTHER: No other significant finding. IMPRESSION: NO ACUTE FINDINGS. TECHNICAL DOCUMENTATION: JOB ID: [id number] [place]-72 2010 [email or web address]- All Rights Reserved Reading location - IP/workstation name: [email or web address]
[2018-04-19] MEDS ORDERED: NORMAL SALINE 500 ML IV ONE ×2 (13:09→15:43)
--- NOTE | 2018-04-19 13:13 | ER Document Report ---
ED General - General Chief Complaint: Psych Problem Stated Complaint: HALLUCINATIONS Time Seen by Provider: 04/19/18 11:42 Mode of Arrival: Ambulatory Information source: Patient, Relative, [facility] Records Notes: 72-year-old male with hypertension, hypothyroidism, coronary artery disease presents via private vehicle from home with reports of visual hallucinations and confusion. Patient states that he began seeing 3 people in his home last night. He states that he has never seen these people before. reports that this morning while getting ready to leave the house the patient was looking behind her and asked who the people were that were standing there. She states there was no one standing behind her. Patient denies auditory hallucinations, prior similar symptoms, changes in medication, alcohol or drug use. Patient does report a headache that occurred yesterday that self resolved without medication. He denies any recent falls, illnesses. Patient is seen by Dr. Gerbre. TRAVEL OUTSIDE OF THE [place] IN LAST 30 DAYS: No - HPI Onset: Yesterday Onset/Duration: Sudden Quality of pain: No pain Severity: None Associated symptoms: Headache - Last night but now resolved. denies: Body/muscle aches, Chest pain, Nonproductive cough, Productive cough, Diarrhea, Fever, Nausea, Weakness Exacerbated by: Denies Relieved by: Denies Similar symptoms previously: No Recently seen / treated by doctor: No - Related Data Allergies/Adverse Reactions: No Known Allergies Allergy (Verified 04/19/18 11:46) Past Medical History - General Information source: Patient, Relative, [facility] Records - Social History Smoking Status: Never Smoker Chew tobacco use (# tins/day): No Frequency of alcohol use: None Drug Abuse: None Lives with: Spouse/Significant other Family History: Reviewed & Not Pertinent Patient has suicidal ideation: No Patient has homicidal ideation: No - Past Medical History Cardiac Medical History: Reports: Hx Coronary Artery Disease, Hx Hypertension Denies: Hx Heart Attack Pulmonary Medical History: Denies: Hx Asthma, Hx Bronchitis, Hx COPD, Hx Pneumonia Neurological Medical History: Denies: Hx Cerebrovascular Accident, Hx Seizures Endocrine Medical History: Reports: Hx Diabetes Mellitus Type 2, Hx Hypothyroidism Renal/ Medical History: Reports: Hx Kidney Stones - left kidney cacer and removed protate cancer and removed. Denies: Hx Peritoneal Dialysis Malignancy Medical History: Reports Hx Prostate Cancer, Reports Hx Renal (Kidney) Cancer Musculoskeletal Medical History: Denies Hx Arthritis, Reports Hx Musculoskeletal Deformity, Reports Hx Musculoskeletal Trauma Traumatic Medical History: Reports: Hx Fractures Past Surgical History: Reports: Hx Kidney (Renal Surgery), Hx Orthopedic Surgery - Immunizations Immunizations up to date: Yes Hx Diphtheria, Pertussis, Tetanus Vaccination: Yes Review of Systems - Review of Systems Notes: REVIEW OF SYSTEMS: CONSTITUTIONAL : Denies fever, chills, or sweats. Denies recent illness. Denies weight loss, recent hospitalizations. EENT: Denies visual changes, eye pain. Denies sore throat, oral lesions, difficulty swallowing. CARDIOVASCULAR: Denies chest pain. Denies palpitations. Denies lower extremity edema. RESPIRATORY: Denies cough. Denies shortness of breath, wheezing. GASTROINTESTINAL: Denies abdominal pain or distention. Denies nausea, v omiting, or diarrhea. Denies blood in vomitus, stools, or per rectum. Denies black, tarry stools. Denies constipation. GENITOURINARY: Denies difficulty urinating, painful urination, frequency, blood in urine, testicular pain or penile discharge. MUSCULOSKELETAL: Denies back or neck pain or stiffness. Denies joint pain or swelling. SKIN: Denies rash, lesions or sores. HEMATOLOGIC : Denies easy bruising or bleeding. LYMPHATIC: Denies swollen glands. NEUROLOGICAL: Denies loss of consciousness. Denies dizziness or lightheadedness. Denies weakness or paralysis. Denies problems difficulty with ambulation, slurred speech. Denies sensory loss, numbness, or tingling. Denies seizures. PSYCHIATRIC: Denies anxiety or stress. Denies depression, suicidal ideation, Physical Exam - Vital signs Vitals: Temp Pulse Resp BP Pulse Ox 97.8 F 79 16 121/73 98 04/19/18 11:56 04/19/18 11:56 04/19/18 11:56 04/19/18 11:56 04/19/18 11:56 - Notes Notes: PHYSICAL EXAMINATION: GENERAL: Well-appearing, well-nourished and in no acute distress. HEAD: Atraumatic, normocephalic. EYES: Pupils equal round and reactive to light, extraocular movements intact, sclera anicteric, conjunctiva are normal. ENT: Nares patent, oropharynx clear without exudates. dry mucous membranes. NECK: Normal range of motion, supple without lymphadenopathy LUNGS: Breath sounds clear to auscultation bilaterally and equal. No wheezes rales or rhonchi. HEART: Regular rate and rhythm without murmurs ABDOMEN: Soft, nontender, nondistended abdomen. No guarding, no rebound. No masses appreciated. Musculoskeletal: Normal range of motion, no pitting or edema. No cyanosis. NEUROLOGICAL: Cranial nerves grossly intact. Slowed speech normal gait. Normal sensory, motor exams. NIH 0 PSYCH: Normal mood, normal affect. SKIN: Warm, Dry, normal turgor, no rashes or lesions noted. Course - Re-evaluation Re-evalutation: 04/19/18 18:54 Laboratory 04/19/18 04/19/18 04/19/18 12:16 12:16 12:16 WBC 5.3 RBC 4.24 L Hgb 11.6 L Hct 35.7 L MCV 84 MCH 27.3 MCHC 32.5 RDW 15.5 H Plt Count 247 Seg Neutrophils % 58.2 Lymphocytes % 30.7 Monocytes % 8.6 Eosinophils % 1.2 Basophils % 1.3 Absolute Neutrophils 3.1 Absolute Lymphocytes 1.6 Absolute Monocytes 0.5 Absolute Eosinophils 0.1 Absolute Basophils 0.1 PT 14.1 INR 1.04 Sodium 142.3 Potassium 4.3 Chloride 106 Carbon Dioxide 29 Anion Gap 7 BUN 14 Creatinine 1.70 H Est GFR ( Amer) 48 L Est GFR (Non-Af Amer) 40 L Glucose 101 Lactic Acid Calcium 9.4 Total Bilirubin 0.8 Direct Bilirubin 0.2 Neonat Total Bilirubin Not Reportable Neonat Direct Bilirubin Not Reportable Neonat Indirect Bili Not Reportable AST 17 ALT 15 L Alkaline Phosphatase 92 Ammonia Creatine Kinase 155 Troponin I Total Protein 7.1 Albumin 4.0 TSH Urine Color Urine Appearance Urine pH Ur Specific Somers Urine Protein Urine Glucose (UA) Urine Ketones Urine Blood Urine Nitrite Urine Bilirubin Urine Urobilinogen Ur Leukocyte Esterase Urine WBC (Auto) Urine RBC (Auto) Urine Mucus (Auto) Urine Ascorbic Acid Salicylates < 1.0 L Urine Opiates Screen Urine Methadone Screen Acetaminophen < 10 L Ur Barbiturates Screen Ur Phencyclidine Scrn Ur Amphetamines Screen U Benzodiazepines Scrn Urine Cocaine Screen U Marijuana (THC) Screen Serum Alcohol < 10 04/19/18 04/19/18 04/19/18 12:16 12:16 12:16 WBC RBC Hgb Hct MCV MCH MCHC RDW Plt Count Seg Neutrophils % Lymphocytes % Monocytes % Eosinophils % Basophils % Absolute Neutrophils Absolute Lymphocytes Absolute Monocytes Absolute Eosinophils Absolute Basophils PT INR Sodium Potassium Chloride Carbon Dioxide Anion Gap BUN Creatinine Est GFR ( Amer) Est GFR (Non-Af Amer) Glucose Lactic Acid 1.0 Calcium Total Bilirubin Direct Bilirubin Neonat Total Bilirubin Neonat Direct Bilirubin Neonat Indirect Bili AST ALT Alkaline Phosphatase Ammonia < 8.7 L Creatine Kinase Troponin I < 0.012 Total Protein Albumin TSH Urine Color Urine Appearance Urine pH Ur Specific Somers Urine Protein Urine Glucose (UA) Urine Ketones Urine Blood Urine Nitrite Urine Bilirubin Urine Urobilinogen Ur Leukocyte Esterase Urine WBC (Auto) Urine RBC (Auto) Urine Mucus (Auto) Urine Ascorbic Acid Salicylates Urine Opiates Screen Urine Methadone Screen Acetaminophen Ur Barbiturates Screen Ur Phencyclidine Scrn Ur Amphetamines Screen U Benzodiazepines Scrn Urine Cocaine Screen U Marijuana (THC) Screen Serum Alcohol 04/19/18 04/19/18 04/19/18 12:16 15:18 15:18 WBC RBC Hgb Hct MCV MCH MCHC RDW Plt Count Seg Neutrophils % Lymphocytes % Monocytes % Eosinophils % Basophils % Absolute Neutrophils Absolute Lymphocytes Absolute Monocytes Absolute Eosinophils Absolute Basophils PT INR Sodium Potassium Chloride Carbon Dioxide Anion Gap BUN Creatinine Est GFR ( Amer) Est GFR (Non-Af Amer) Glucose Lactic Acid Calcium Total Bilirubin Direct Bilirubin Neonat Total Bilirubin Neonat Direct Bilirubin Neonat Indirect Bili AST ALT Alkaline Phosphatase Ammonia Creatine Kinase Troponin I Total Protein Albumin TSH 3.22 Urine Color YELLOW Urine Appearance CLEAR Urine pH 7.0 Ur Specific Somers 1.008 Urine Protein NEGATIVE Urine Glucose (UA) NEGATIVE Urine Ketones NEGATIVE Urine Blood NEGATIVE Urine Nitrite NEGATIVE Urine Bilirubin NEGATIVE Urine Urobilinogen NEGATIVE Ur Leukocyte Esterase NEGATIVE Urine WBC (Auto) 0 Urine RBC (Auto) 1 Urine Mucus (Auto) RARE Urine Ascorbic Acid NEGATIVE Salicylates Urine Opiates Screen NEGATIVE Urine Methadone Screen NEGATIVE Acetaminophen Ur Barbiturates Screen NEGATIVE Ur Phencyclidine Scrn NEGATIVE Ur Amphetamines Screen NEGATIVE U Benzodiazepines Scrn NEGATIVE Urine Cocaine Screen NEGATIVE U Marijuana (THC) Screen NEGATIVE Serum Alcohol Chest X-Ray 04/19/18 11:46 IMPRESSION: NO ACUTE FINDINGS. Head CT 04/19/18 11:50 IMPRESSION: MILD CHRONIC CHANGES OF ATROPHY AND MICROVASCULAR ISCHEMIA. NO ACUTE PROCESS. EVIDENCE OF ACUTE STROKE: NO. Head MRI 04/19/18 13:11 IMPRESSION: Negative for acute or sub-acute infarction. EVIDENCE OF ACUTE STROKE: NO. Temp Pulse Resp BP Pulse Ox 97.8 F 94 20 138/86 H 98 04/19/18 11:57 04/19/18 18:00 04/19/18 18:00 04/19/18 18:00 04/19/18 18:00 72-year-old male presents with visual hallucinations that started yesterday. Vital signs reviewed upon arrival and within normal limits. Patient is alert and oriented x4 and has an NIH of 0. He is cooperative and aware of his hallucinations and requested to be seen at the hospital today. Patient had an extensive workup including MRI, CT, chest x-ray that were unremarkable. CBC, CMP, cardiac enzymes, ammonia levels were within normal limits except for mildly elevated creatinine of 1.7. Patient is not confused, have history of psychia tric illness and denies any changes in his medication. expresses concerns because the patient does have several guns in the house and he stayed up all night because he was convinced that there were 3 people in his home. I did speak to Dr. Suarez on-call for Dr. Gerber who agrees to admit the patient for observation. Patient was reevaluated multiple times in has no complaints except for some mild low back pain which is chronic for him. Patient was admitted to telemetry. - Vital Signs Vital signs: Temp Pulse Resp BP Pulse Ox 97.8 F 94 20 138/86 H 98 04/19/18 11:57 04/19/18 18:00 04/19/18 18:00 04/19/18 18:00 04/19/18 18:00 - Laboratory Result Diagrams: 04/19/18 12:16 04/19/18 12:16 Laboratory results interpreted by me: 04/19/18 04/19/18 04/19/18 12:16 12:16 12:16 RBC 4.24 L Hgb 11.6 L Hct 35.7 L RDW 15.5 H Creatinine 1.70 H Est GFR ( Amer) 48 L Est GFR (Non-Af Amer) 40 L ALT 15 L Ammonia < 8.7 L Salicylates < 1.0 L Acetaminophen < 10 L - Diagnostic Test Radiology reviewed: Image reviewed, Reports reviewed - EKG Interpretation by Me EKG shows normal: Sinus rhythm Rate: Normal Rhythm: NSR When compared to previous EKG there are: No significant change Discharge - Discharge Clinical Impression: Visual hallucinations, Acute kidney injury Anemia Qualifiers: Anemia type: unspecified type Qualified Code(s): D64.9 - Anemia, unspecified Hypertension Qualifiers: Hypertension type: unspecified Qualified Code(s): I10 - Essential (primary) hypertension Condition: Good Disposition: ADMITTED OBSERVATION Admitting Provider: [facility] Unit Admitted: Telemetry
[2018-04-19] MEDS ORDERED: LORAZEPAM INJ 2 MG/1 ML VIAL IV ONE (13:45)
--- NOTE | 2018-04-19 15:11 | RADIOLOGY REPORT (SQ) ---
EXAM DESCRIPTION: MRI HEAD WITHOUT COMPLETED DATE/TIME: 04/19/2018 2:59 pm REASON FOR STUDY: ams COMPARISON: 08/22/2016 TECHNIQUE: Multiplanar imaging includes non-contrasted T1, T2, FLAIR, and diffusion with ADC map seq uences. Images stored on PACS. LIMITATIONS: Mild motion artifact. FINDINGS: ANATOMY: No anomalies. Normal vascular flow voids. Pituitary fossa normal. CSF SPACES: Normal in size and contour. No hemorrhage. CEREBRUM: Sulci and gyri normal in size and contour. Normal white matter signal on FLAIR imaging. No evidence of hemorrhage, mass, or extraaxial fluid collection. POSTERIOR FOSSA: No signal alteration. No hemorrhage. No edema, masses or mass effect. Internal doron tory canals, cerebello-pontine angles, mastoids normal. DIFFUSION IMAGING: Negative for acute or sub-acute infarction. ORBITS: No masses. Globes normal. PARANASAL SINUSES: No fluid levels. Mucosa normal. OTHER: No other significant finding. IMPRESSION: Negative for acute or sub-acute infarction. EVIDENCE OF ACUTE STROKE: NO. TECHNICAL DOCUMENTATION: JOB ID: [id number] [place]-72 2010 [employer]- All Rights Reserved Reading location - IP/workstation name: [email or web address]
[2018-04-19] MEDS ORDERED: ACETAMINOPHEN 325 MG TABLET PO ONE (15:44)
[2018-04-19 15:55] LABS: APPEARANCE,URINE CLEAR; BILIRUBIN,URINE NEGATIVE (NEGATIVE); COLOR,URINE YELLOW; GLUCOSE, URINE NEGATIVE (NEGATIVE); KETONES,URINE NEGATIVE (NEGATIVE); LEUKOCYTE ESTERASE,URINE NEGATIVE (NEGATIVE); NITRITE,URINE NEGATIVE (NEGATIVE); PROTEIN,URINE NEGATIVE (NEGATIVE); URINE SPECIFIC GRAVITY 1.008; UROBILINOGEN,URINE NEGATIVE mg/dL (<2.0)
[2018-04-19 16:09] LABS: URINE AMPHETAMINES SCREEN NEGATIVE; URINE BARBITURATES SCREEN NEGATIVE; URINE BENZODIAZEPINES SCREEN NEGATIVE; URINE COCAINE SCREEN NEGATIVE; URINE MARIJUANA (THC) SCREEN NEGATIVE; URINE METHADONE SCREEN NEGATIVE; URINE PHENCYCLIDINE SCREEN NEGATIVE
--- NOTE | 2018-04-19 17:47 | EKG REPORT ---
SEVERITY:- NORMAL ECG - SINUS RHYTHM : Confirmed by: Bernardo Yi MD 19-Apr-2018 17:45:53
[2018-04-19] MEDS: NORMAL SALINE 1000 ML 1,000 ML IV PRN (21:00)
[2018-04-19] MEDS ORDERED: ACETAMINOPHEN 325 MG TABLET PO PRN (21:43)
--- NOTE | 2018-04-19 22:49 | RADIOLOGY REPORT (SQ) ---
EXAM DESCRIPTION: US RETROPERITONEUM LIMITED COMPLETED DATE/TME: 04/19/2018 00:00 CLINICAL HISTORY: 72 years, Male, acute kidney injury COMPARISON: CTA [id number] TECHNIQUE: Transverse longitudinal sonographic images of the kidneys and urinary bladder LIMITATIONS: None. FINDINGS: Status post left nephrectomy. No abnormality in the left renal fossa. The right kidney measures 11.0 x 6.0 x 6.2 cm. Simple appearing 1.6 x 1.5 cm right renal cyst. No solid renal mass or calculus. No hydronephrosis. No perinephric fluid collection. Cortical medullary differentiation is preserved. The urinary bladder is not distended, limiting its evaluation. IMPRESSION: Status post left nephrectomy. Simple right renal cyst. copyright 2010 [employer]- All Rights Reserved
[2018-04-20] MEDS ORDERED: CLONIDINE HCL 0.1 MG TABLET PO ONE (06:15)
--- NOTE | 2018-04-20 09:00 | EKG REPORT ---
SEVERITY:- ABNORMAL ECG - JUNCTIONAL TACHYCARDIA REPOLARIZATION ABNORMALITY, PROB RATE RELATED BORDERLINE PROLONGED QT INTERVAL : Confirmed by: Bernardo Yi MD 20-Apr-2018 08:59:41
[2018-04-20] MEDS: ENOXAPARIN SODIUM INJ 30 MG/0.3 ML DISP.SYRIN SUBCUT SCH (09:56)
[2018-04-20] MEDS ORDERED: (PENDING PHARMACY ID) (Nifedipine [Nifedipine Er] 60 MG) PO SCH (12:30)
[2018-04-20] MEDS ORDERED: (PENDING PHARMACY ID) (Pravastatin Sodium [Pravachol] 40 MG) PO SCH (12:30)
--- NOTE | 2018-04-20 12:35 | PDOC H&P ---
History of Present Illness Admission Date/PCP: 04/19/18 18:16 MAREK CAMP MD History of Present Illness: AMIRA SHERIDAN is a 72 year old male, he has a history of hypertension, coronary artery disease, left kidney cancer status post left nephrectomy he came to the emergency room for evaluation of visual hallucination and confusion. Patient stated that he began seeing 3 people to in his home the day before he came to the emergency room, he said he has never seen these people before. Patient's stated that while she was getting ready to leave the house the patient was looking behind and ask what the people were that with standing behinde her . In the emergency room he was extensively evaluated with blood work, CT scan and also MRI of the brain the MRI brain was negative for any acute pathology, the serum creatinine was 1.7, he has a history of kidney cancer and is status post left nephrectomy. The emergency room physician wants patient admitted because there was no particular explanation for the hallucination. When I saw this patient on the floor he has symptoms of Parkinson disease, he has tremors, festinat gait, expressionless face and rigid muscular tone, the visual hallucination could be part of the parkinsonism/Parkinson disease. Patient stated that Dr. Camp is PCP referred him to a neurologist outpatient for evaluation of the tremor and that was diagnosed with " central tremors" . But based on my evaluation today this patient symptoms and signs is consistent with Parkinson disease Past Medical History Cardiac Medical History: Reports: Coronary Artery Disease, Hypertension Endocrine Medical History: Reports: Diabetes Mellitus Type 2, Hyperthyroidism, Hypothyroidism Malignancy Medical History: Reports: Renal (Kidney) Cancer Hematology: Denies: Anemia Past Surgical History Past Surgical History: Reports: Orthopedic Surgery Social History Lives with: Spouse/Significant other Smoking Status: Never Smoker Family History Family History: Reviewed & Not Pertinent Parental Family History Reviewed: Yes Children Family History Reviewed: Yes Sibling(s) Family History Reviewed.: Yes Medication/Allergy Home Medications: Cholecalciferol (Vitamin D3) [Vitamin D3 1000 Unit Tablet] 2,000 unit PO DAILY 04/20/18 Clonidine HCl [Catapres 0.1 mg Tablet] 0.1 mg PO Q12 04/20/18 Methimazole [Tapazole 5 Mg Tablet] 10 mg PO DAILY 04/20/18 Nifedipine [Nifedipine ER] 60 mg PO DAILY 04/20/18 Pravastatin Sodium [Pravachol] 40 mg PO DAILY 04/20/18 Tizanidine HCl [Zanaflex 4 Mg Tablet] 4 mg PO Q8 04/20/18 Allergies/Adverse Reactions: No Known Allergies Allergy (Verified 04/19/18 11:46) Review of Systems Constitutional: ABSENT: chills, fever(s), headache(s), weight gain, weight loss Eyes: PRESENT: visual disturbances Ears: ABSENT: hearing changes Cardiovascular: ABSENT: chest pain, dyspnea on exertion, edema, orthropnea, palpitations Respiratory: ABSENT: cough, hemoptysis Gastrointestinal: ABSENT: abdominal pain, constipation, diarrhea, hematemesis, hematochezia, nausea, vomiting Genitourinary: ABSENT: dysuria, hematuria Musculoskeletal: ABSENT: joint swelling Integumentary: ABSENT: rash, wounds Neurological: PRESENT: abnormal gait, confusion, tremor(s) Psychiatric: ABSENT: anxiety, depression, homidical ideation, suicidal ideation Endocrine: ABSENT: cold intolerance, heat intolerance, menstrual abnormalities, polydipsia, polyuria Hematologic/Lymphatic: ABSENT: easy bleeding, easy bruising, lymphadenopathy Physical Exam Vital Signs: Temp Pulse Resp BP Pulse Ox 98.4 F 87 20 172/96 H 98 04/20/18 11:38 04/20/18 11:38 04/20/18 11:38 04/20/18 11:38 04/20/18 11:38 Intake & Output 04/19/18 04/20/18 04/21/18 06:59 06:59 06:59 Intake Total 1000 Output Total 750 250 Balance 250 -250 Weight 88.5 kg General appearance: PRESENT: no acute distress, well-developed, well-nourished Head exam: PRESENT: atraumatic, normocephalic Eye exam: PRESENT: conjunctiva pink, EOMI, PERRLA Ear exam: PRESENT: normal external ear exam Mouth exam: PRESENT: moist, tongue midline Neck exam: PRESENT: full ROM Respiratory exam: PRESENT: clear to auscultation donita Cardiovascular exam: PRESENT: RRR, +S1, +S2 Vascular exam: PRESENT: normal capillary refill GI/Abdominal exam: PRESENT: normal bowel sounds, soft Rectal exam: PRESENT: deferred Neurological exam: PRESENT: alert, abnormal gait - festinate gait, ataxia, normal gait, other - Tremors Skin exam: PRESENT: dry, intact, warm Results Laboratory Results: 04/19/18 12:16 04/19/18 12:16 04/19/18 04/19/18 04/19/18 12:16 12:16 12:16 WBC 5.3 RBC 4.24 L Hgb 11.6 L Hct 35.7 L MCV 84 MCH 27.3 MCHC 32.5 RDW 15.5 H Plt Count 247 Seg Neutrophils % 58.2 Lymphocytes % 30.7 Monocytes % 8.6 Eosinophils % 1.2 Basophils % 1.3 Absolute Neutrophils 3.1 Absolute Lymphocytes 1.6 Absolute Monocytes 0.5 Absolute Eosinophils 0.1 Absolute Basophils 0.1 Sodium 142.3 Potassium 4.3 Chloride 106 Carbon Dioxide 29 Anion Gap 7 BUN 14 Creatinine 1.70 H Est GFR ( Amer) 48 L Est GFR (Non-Af Amer) 40 L Glucose 101 Lactic Acid 1.0 Calcium 9.4 Total Bilirubin 0.8 AST 17 ALT 15 L Alkaline Phosphatase 92 Ammonia Total Protein 7.1 Albumin 4.0 TSH Urine Color Urine Appearance Urine pH Ur Specific [place] Urine Protein Urine Glucose (UA) Urine Ketones Urine Blood Urine Nitrite Ur Leukocyte Esterase Urine WBC (Auto) Urine RBC (Auto) 04/19/18 04/19/18 04/19/18 12:16 12:16 15:18 WBC RBC Hgb Hct MCV MCH MCHC RDW Plt Count Seg Neutrophils % Lymphocytes % Monocytes % Eosinophils % Basophils % Absolute Neutrophils Absolute Lymphocytes Absolute Monocytes Absolute Eosinophils Absolute Basophils Sodium Potassium Chloride Carbon Dioxide Anion Gap BUN Creatinine Est GFR ( Amer) Est GFR (Non-Af Amer) Glucose Lactic Acid Calcium Total Bilirubin AST ALT Alkaline Phosphatase Ammonia < 8.7 L Total Protein Albumin TSH 3.22 Urine Color YELLOW Urine Appearance CLEAR Urine pH 7.0 Ur Specific [place] 1.008 Urine Protein NEGATIVE Urine Glucose (UA) NEGATIVE Urine Ketones NEGATIVE Urine Blood NEGATIVE Urine Nitrite NEGATIVE Ur Leukocyte Esterase NEGATIVE Urine WBC (Auto) 0 Urine RBC (Auto) 1 04/19/18 04/19/18 12:16 12:16 Creatine Kinase 155 Troponin I < 0.012 Impressions: Renal Ultrasound 04/19/18 00:00 IMPRESSION: Status post left nephrectomy. Simple right renal cyst. copyright 2011 [employer]- All Rights Reserved Chest X-Ray 04/19/18 11:46 IMPRESSION: NO ACUTE FINDINGS. Head CT 04/19/18 11:50 IMPRESSION: MILD CHRONIC CHANGES OF ATROPHY AND MICROVASCULAR ISCHEMIA. NO ACUTE PROCESS. EVIDENCE OF ACUTE STROKE: NO. Head MRI 04/19/18 13:11 IMPRESSION: Negative for acute or sub-acute infarction. EVIDENCE OF ACUTE STROKE: NO. Assessment & Plan - Diagnosis (1) Parkinsonism Qualifiers: Parkinsonism type: Parkinson's disease Qualified Code(s): G20 - Parkinson's disease Is this a current diagnosis for this admission?: Yes Plan: Patient symptoms and signs consistent with Parkinson disease, he may need to be started on Sinemet, I would defer that decision to DR Camp (2) Hypertension Qualifiers: Hypertension type: essential hypertension Qualified Code(s): I10 - Essential (primary) hypertension Is this a current diagnosis for this admission?: Yes (3) Visual hallucinations Is this a current diagnosis for this admission?: Yes (4) Chronic kidney disease, stage 3 Is this a current diagnosis for this admission?: Yes Plan: The kidney ultrasound showed the right kidney measured 11 cm by 6 x 6 cm also found was a simple right adrenal cyst, the urinalysis is bland, patient probably have CKD history of left nephrectomy, the elevated serum creatinine is probably from intrinsic kidney disease from compensatory ultrafiltration of the right kidney, prerenal component cannot completely be rule out, was given IV fluid normal saline we will follow Chem-7
[2018-04-20 14:12] LABS: ALANINE AMINOTRANSFERASE 22 U/L (21-72); ALBUMIN 4.4 g/dL (3.5-5.0); ALKALINE PHOSPHATASE 107 U/L (38-126); ANION GAP 11 (5-19); ASPARTATE AMINO TRANSFERASE 24 U/L (17-59); BILIRUBIN,DIRECT 0.2 mg/dL (0.0-0.4); BLOOD UREA NITROGEN 16 mg/dL (7-20); CALCIUM 9.9 mg/dL (8.4-10.2); CARBON DIOXIDE 29 mmol/L (22-30); CHLORIDE 104 mmol/L (98-107); GLUCOSE 81 mg/dL (75-110); SODIUM 143.5 mmol/L (137-145); TOTAL PROTEIN 7.8 g/dL (6.3-8.2)
[2018-04-20] MEDS: CHOLECALCIFEROL (D3) 1,000 UNIT TABLET PO SCH (16:26)
[2018-04-20] MEDS: CLONIDINE HCL 0.1 MG TABLET PO SCH ×2 (16:26→21:08)
[2018-04-20] MEDS: CARBIDOPA/LEVODOPA 25-100 MG TABLET PO SCH ×2 (16:26→21:07)
[2018-04-20] MEDS: METHIMAZOLE 5 MG TABLET PO SCH (18:18)
[2018-04-20] MEDS: NORMAL SALINE 1000 ML 1,000 ML IV PRN (18:22)
[2018-04-20] MEDS: TIZANIDINE HCL 4 MG TABLET PO SCH (21:06)
[2018-04-20] MEDS: ATORVASTATIN CALCIUM 10 MG TABLET PO SCH (21:06)
[2018-04-21] MEDS: TIZANIDINE HCL 4 MG TABLET PO SCH ×3 (05:13→21:51)
[2018-04-21] MEDS: CARBIDOPA/LEVODOPA 25-100 MG TABLET PO SCH ×3 (05:13→21:49)
--- NOTE | 2018-04-21 07:58 | Physician Advisory Note ---
Physician Advisor ProgressNote .: [facility], I have reviewed the medical record for this patient. Physician Advisor Statement: Medical necessity: Pt brought in on Sat, being observed in hospital r.e. visual halluc.s. Started on Sinemet & watched for response. - Labs repeated, but were not that different from baseline to begin with, so reason for repeat levels is not clear to the reviewer. - Please make it clear the reason(s) pt continued to require hospitalization on Sun & each day since, & what was/is being done for him each day that requires continued hospital level of care. (SEverity of illness & intensity of service - service that a reviewer physician will agree is reasonable & necessary....) Thanks! CK
[2018-04-21] MEDS: CHOLECALCIFEROL (D3) 1,000 UNIT TABLET PO SCH (10:18)
[2018-04-21] MEDS: CLONIDINE HCL 0.1 MG TABLET PO SCH ×2 (10:19→21:49)
[2018-04-21] MEDS: METHIMAZOLE 5 MG TABLET PO SCH (10:19)
[2018-04-21] MEDS: NIFEDIPINE 30 MG TAB.ER.24 PO SCH (10:19)
[2018-04-21] MEDS: ENOXAPARIN SODIUM INJ 30 MG/0.3 ML DISP.SYRIN SUBCUT SCH (10:21)
--- NOTE | 2018-04-21 11:05 | PDOC PROGRESS REPORT ---
Subjective Progress Note for:: 04/21/18 Subjective:: Patient was admitted because of the hallucinations and the tremor Patient MRI of the head was negative for any acute finding Patient seen by the neurologist as outpatient and suggest the essential tremor According to the patient see since last 1 week the object Patient is currently doing fair today Denied any chest pain to than any shortness of the breath In the weekend patient was started for possible Parkinson's medications As well as the patient have a some kind of her memory issues as outpatient was referred to the neurologist couple of times Reason For Visit: VISUAL HALLUCINATIONS/ETIOLOGY/ACUTE KIDNEY INJURY Physical Exam Vital Signs: Temp Pulse Resp BP Pulse Ox 98.2 F 80 12 122/74 98 04/21/18 07:34 04/21/18 07:34 04/21/18 07:34 04/21/18 07:34 04/21/18 07:34 Intake & Output 04/20/18 04/21/18 04/22/18 06:59 06:59 06:59 Intake Total 1000 1000 Output Total 750 1300 Balance 250 -300 Weight 88.5 kg 88.4 kg General appearance: PRESENT: no acute distress, well-developed, well-nourished Head exam: PRESENT: atraumatic, normocephalic Eye exam: PRESENT: conjunctiva pink, EOMI, PERRLA. ABSENT: scleral icterus Ear exam: PRESENT: normal external ear exam Mouth exam: PRESENT: moist, tongue midline Neck exam: PRESENT: full ROM. ABSENT: carotid bruit, JVD, lymphadenopathy, thyromegaly Respiratory exam: PRESENT: clear to auscultation donita Cardiovascular exam: PRESENT: RRR. ABSENT: diastolic murmur, rubs, systolic murmur Vascular exam: PRESENT: normal capillary refill GI/Abdominal exam: PRESENT: normal bowel sounds, soft. ABSENT: distended, guarding, mass, organolmegaly, rebound, tenderness Rectal exam: PRESENT: deferred Musculoskeletal exam: PRESENT: ambulatory Neurological exam: PRESENT: alert, awake, oriented to person, oriented to place, oriented to time, oriented to situation, CN II-XII grossly intact. ABSENT: motor sensory deficit Psychiatric exam: PRESENT: appropriate affect, normal mood. ABSENT: homicidal ideation, suicidal ideation Skin exam: PRESENT: dry, intact, warm. ABSENT: cyanosis, rash Results Laboratory Results: 04/19/18 12:16 04/20/18 13:02 04/20/18 13:02 Sodium 143.5 Potassium 4.0 Chloride 104 Carbon Dioxide 29 Anion Gap 11 BUN 16 Creatinine 1.62 H Est GFR ( Amer) 51 L Est GFR (Non-Af Amer) 42 L Glucose 81 Calcium 9.9 Total Bilirubin 1.0 AST 24 ALT 22 Alkaline Phosphatase 107 Total Protein 7.8 Albumin 4.4 04/19/18 04/19/18 12:16 12:16 Creatine Kinase 155 Troponin I < 0.012 Impressions: Renal Ultrasound 04/19/18 00:00 IMPRESSION: Status post left nephrectomy. Simple right renal cyst. copyright 2010 [employer]- All Rights Reserved Chest X-Ray 04/19/18 11:46 IMPRESSION: NO ACUTE FINDINGS. Head CT 04/19/18 11:50 IMPRESSION: MILD CHRONIC CHANGES OF ATROPHY AND MICROVASCULAR ISCHEMIA. NO ACUTE PROCESS. EVIDENCE OF ACUTE STROKE: NO. Head MRI 04/19/18 13:11 IMPRESSION: Negative for acute or sub-acute infarction. EVIDENCE OF ACUTE STROKE: NO. Assessment & Plan - Diagnosis (1) Parkinsonism Qualifiers: Parkinsonism type: Parkinson's disease Qualified Code(s): G20 - Parkinson's disease Is this a current diagnosis for this admission?: Yes Plan: Will get the physical therapy evaluations Follow outpatients neurology Discussed with the patient and the (2) Hyperthyroidism Is this a current diagnosis for this admission?: Yes Plan: TSH is currently all stable (3) Acute kidney injury Is this a current diagnosis for this admission?: Yes Plan: Is currently see her Dr. Montgomery as an outpatient patient's creatinine is all stable (4) Anemia Qualifiers: Anemia type: unspecified type Qualified Code(s): D64.9 - Anemia, unspecified Is this a current diagnosis for this admission?: Yes (5) Hypertension Qualifiers: Hypertension type: essential hypertension Qualified Code(s): I10 - Essential (primary) hypertension Is this a current diagnosis for this admission?: Yes Plan: on current medication (6) Visual hallucinations Is this a current diagnosis for this admission?: Yes Plan: Consult the psych for further evaluations - Time Time Spent with patient: 15-24 minutes Medications reviewed and adjusted accordingly: Yes Anticipated discharge: Home Within: Other - Plan Summary Plan Summary: This with the patient and the discussed today regarding the all plan
--- NOTE | 2018-04-21 11:38 | PSYCHOLOGICAL NOTE ---
Psych Note - Psych Note Date seen by psych provider: 04/21/18 Time seen by psych provider: 08:30 - Chart review at 0829 Psych Note: Reason for Consult: Hallucinations Contact Permissions: likely and other family Patient is a 72 year old male who presented the the ED on 04/19/18 for hallucinations and confusion. Medical documentation noted patient reported seeing people and different figures for 3 days prior to visit, last week some friends told him he may have slurred speech, family at bedside in ED noted speech was normal in that moment. His medical history is positive for HTN, hypothyroidism, CAD, Diabetes Mellitus II, Kidney and Prostate cancer (removal of both, left kidney) and CKD stage III moderate. Dr. Gerber is PCM and made referral to neurology for tremors and diagnosis was central tremors. Head CT dated 04/19/18 completed secondary to visual hallucinations had the following findings: prominent ventricles, areas of low density in the white matter most likely due to chronic microvascular ischemic changes and mild age related involutional change. Overall impression was mild chronic changes of atrophy and microvascular ischemia and no acute processes. The chronic language is of importance and is suggestive of neurodegenerative processes a seen in dementia. Diagnosis: Parkinson's Disease (diagnosed this visit) 799.59 (R41.9) Unspecified Neurocognitive Disorder Medication recommendations made by the psychiatric medication provider, Dr. Margarette MD., includes: Add Depakote 250MG twice a day for mood stabilization Add Buspar 5MG twice a day for anxiety/calming effect/depression/sleep Treating Physicians are asked to consider avoiding the use of antipsychotics (Haldol, Geodon, Zyprexa, Risperdal: especially high doses), benzodiazepines (Ativan, Xanax, Valium, Klonopin), some sleep aids (Ambien, Lunesta, Seroquel and Trazodone at high doses), narcotic pain medication and steroids (prednisone) as these have been known to cause and/or exacerbate psychosis (hallucinations, delusions), paranoia, agitation, and aggression in individuals with neurodegenerative processes. Impression/Plan: Patient is cleared from acute psychiatric services. He has no documented history of MH. If patient has Parkinson's Disease hallucinations can be a symptom. Head CT has chronic, neurodegenerative language either way. Consultedwith Dr. Moreno regarding the management and care of patient. Doctor who ordered psych consult made aware of recommendations via telephone call by Behavioral Health Driver.
[2018-04-21] MEDS: METOPROLOL TARTRATE 25 MG TABLET PO SCH (21:48)
[2018-04-21] MEDS: ATORVASTATIN CALCIUM 10 MG TABLET PO SCH (21:49)
[2018-04-22] MEDS: CARBIDOPA/LEVODOPA 25-100 MG TABLET PO SCH ×3 (06:09→21:41)
[2018-04-22] MEDS: TIZANIDINE HCL 4 MG TABLET PO SCH ×3 (06:09→21:42)
[2018-04-22 06:29] LABS: ABSOLUTE BASOPHILS # (AUTO) 0.1 10^3/uL (0.0-0.2); ABSOLUTE EOSINOPHILS # (AUTO) 0.2 10^3/uL (0.0-0.6); ABSOLUTE LYMPHOCYTES (AUTO) 2.1 10^3/uL (0.5-4.7); ABSOLUTE MONOCYTES (AUTO) 0.5 10^3/uL (0.1-1.4); ABSOLUTE NEUT (AUTO) 3.4 10^3/uL (1.7-8.2); BASOPHILS % (AUTO) 1.1 % (0-2); EOSINOPHILS % (AUTO) 2.8 % (0-6); HEMATOCRIT 35.4 % (37.9-51.0); HEMOGLOBIN 11.4 g/dL (13.5-17.0); LYMPHOCYTES % (AUTO) 33.7 % (13-45); MEAN CORPUSCULAR HEMOGLOBIN 27.1 pg (27.0-33.4); MEAN CORPUSCULAR HGB CONC 32.3 g/dL (32.0-36.0); MEAN CORPUSCULAR VOLUME 84 fl (80-97); MONOCYTES % (AUTO) 8.4 % (3-13); PLATELET COUNT 254 10^3/uL (150-450); RED BLOOD COUNT 4.22 10^6/uL (4.35-5.55); RED CELL DISTRIBUTION WIDTH 15.4 % (11.5-14.0); TOTAL CELLS COUNTED % (AUTO) 100 %; WHITE BLOOD COUNT 6.2 10^3/uL (4.0-10.5)
[2018-04-22 06:54] LABS: ANION GAP 7 (5-19); BLOOD UREA NITROGEN 19 mg/dL (7-20); CALCIUM 9.5 mg/dL (8.4-10.2); CARBON DIOXIDE 30 mmol/L (22-30); CHLORIDE 105 mmol/L (98-107); GLUCOSE 105 mg/dL (75-110); POTASSIUM 3.8 mmol/L (3.6-5.0); SODIUM 141.9 mmol/L (137-145)
[2018-04-22] MEDS: CLONIDINE HCL 0.1 MG TABLET PO SCH ×2 (09:20→21:41)
[2018-04-22] MEDS: DIVALPROEX SODIUM 250 MG TABLET.DR PO SCH ×2 (09:21→21:41)
[2018-04-22] MEDS: METOPROLOL TARTRATE 25 MG TABLET PO SCH ×2 (09:22→21:41)
[2018-04-22] MEDS: BUSPIRONE HCL 10 MG TABLET PO SCH ×2 (09:22→21:41)
[2018-04-22] MEDS: CHOLECALCIFEROL (D3) 1,000 UNIT TABLET PO SCH (09:22)
[2018-04-22] MEDS: NIFEDIPINE 30 MG TAB.ER.24 PO SCH (09:23)
[2018-04-22] MEDS: ENOXAPARIN SODIUM INJ 30 MG/0.3 ML DISP.SYRIN SUBCUT SCH (09:23)
--- NOTE | 2018-04-22 12:24 | Physician Advisory Note ---
Physician Advisor ProgressNote .: [facility] I have reviewed the medical record for this patient. Physician Advisor Statement: Pt was brought in on Sat, being observed in hospital r.e. visual halluc.s. Started on Sinemet & watched for response. It appears from review of nurse notes that patient has had episodes of tachycardia, suspected to be SVT per their notes, up to 140s-150s. This has occurred on 04/20 at 02:00, and on 04/21 at 01:16. The second episode was symptomatic per nursing documentation. He has had some elevated BPs, but no hypertensive emergency. At 20:41 on 04/21, attending added metoprolol 25mg bid, which could decrease BP and control HR. Note on 04/20 at 09:57 states patient was needing to be reoriented & redirected multiple times due to altered mental status, that he repeatedly removed tele mo nitor & demanded removal of IV, kept going out of his room, needed increased nursing supervision. Psychiatry saw patient on 04/21 PM & made recommendations. Attending started Buspar & Depakote as recommended on 04/22 AM. *Attending, please document explicitly r.e. patient's Medical necessity for continued hospitalization: 1. Are the tachycardia episodes concerning, or not concerning, to attending? (Was metoprolol given to treat tachycardia, or just for HTN?) - If concerning, is cause likely from "SVT" or another underlying diagnosis such as Afib? 2. If, on 04/21, plan was to get PT eval & consult psych, but psych had already seen pt that AM (& cleared him) & PT recommended home health PT that afternoon; what was reason patient could not be safely d/c'd home 04/21 PM? 3. Are there other acute issues that concern attending that explain patient's continued stay through the weekend and beyond? Persistent delirium due to Parkinsons/vasc dementia/acute encephalopathy from ? Concerns about unsafe ? What was reason PT eval needed to be done while in hospital rather than after d/c? ... Parkinson's disease does not typically require hospitalization. Documentation on 04/21 says planning to get PT eval & consult psych, but psych had already seen patient, Cr was stated to be stable, and that afternoon, PT recommended home health PT. So ... payer's reviewers will ask why patient couldn't be d/c'd home that PM; without reason stated by attending, they will be happy to refuse to pay for care given. Please make it clear in documentation the reason(s) pt continued to require hospitalization on 04/20 & each day since, & what was/is being done for him each day that requires continued hospital level of care. (Severity of illness & intensity of service, attending concerns....) --> If patient has needed continued hospitalization for acute clinical issue(s), and not just for reasons of patient/family/physician convenience, and these are documented, then patient may be appropriate for conversion to Inpatient status, even if he is ready for d/c later today. Thanks! CK
--- NOTE | 2018-04-22 12:49 | PDOC PROGRESS REPORT ---
Subjective Progress Note for:: 04/22/18 Subjective:: Patient is currently doing much better Patient is denied any chest pain to than any shortness of the breath Patient's blood pressure was elevated adjust the medications Patient seen by the psych and suggest to use the Depakote and BuSpar Patient is walking the hallway without any problems Reason For Visit: VISUAL HALLUCINATIONS/ETIOLOGY/ACUTE KIDNEY INJURY Physical Exam Vital Signs: Temp Pulse Resp BP Pulse Ox 97.5 F 77 18 138/85 H 99 04/22/18 07:54 04/22/18 07:54 04/22/18 07:54 04/22/18 07:54 04/22/18 07:54 Intake & Output 04/21/18 04/22/18 04/23/18 06:59 06:59 06:59 Intake Total 1000 909 Output Total 1300 2650 Balance -300 -1741 Weight 88.4 kg 88.3 kg General appearance: PRESENT: no acute distress, well-developed, well-nourished Head exam: PRESENT: atraumatic, normocephalic Eye exam: PRESENT: conjunctiva pink, EOMI, PERRLA. ABSENT: scleral icterus Ear exam: PRESENT: normal external ear exam Mouth exam: PRESENT: moist, tongue midline Neck exam: PRESENT: full ROM. ABSENT: carotid bruit, JVD, lymphadenopathy, thyromegaly Respiratory exam: PRESENT: clear to auscultation donita Cardiovascular exam: PRESENT: RRR. ABSENT: diastolic murmur, rubs, systolic murmur Vascular exam: PRESENT: normal capillary refill GI/Abdominal exam: PRESENT: normal bowel sounds, soft. ABSENT: distended, guarding, mass, organolmegaly, rebound, tenderness Rectal exam: PRESENT: deferred Musculoskeletal exam: PRESENT: ambulatory Neurological exam: PRESENT: alert, awake, oriented to person, oriented to place, oriented to time, oriented to situation, CN II-XII grossly intact. ABSENT: motor sensory deficit Psychiatric exam: PRESENT: appropriate affect, normal mood. ABSENT: homicidal ideation, suicidal ideation Skin exam: PRESENT: dry, intact, warm. ABSENT: cyanosis, rash Results Laboratory Results: 04/22/18 05:15 04/22/18 05:15 04/22/18 04/22/18 05:15 05:15 WBC 6.2 RBC 4.22 L Hgb 11.4 L Hct 35.4 L MCV 84 MCH 27.1 MCHC 32.3 RDW 15.4 H Plt Count 254 Seg Neutrophils % 54.0 Lymphocytes % 33.7 Monocytes % 8.4 Eosinophils % 2.8 Basophils % 1.1 Absolute Neutrophils 3.4 Absolute Lymphocytes 2.1 Absolute Monocytes 0.5 Absolute Eosinophils 0.2 Absolute Basophils 0.1 Sodium 141.9 Potassium 3.8 Chloride 105 Carbon Dioxide 30 Anion Gap 7 BUN 19 Creatinine 1.40 H Est GFR ( Amer) > 60 Est GFR (Non-Af Amer) 50 L Glucose 105 Calcium 9.5 04/19/18 15:18 Clean Catch Midstream Urine Culture - Final NO GROWTH 2 DAYS 04/19/18 04/19/18 12:16 12:16 Creatine Kinase 155 Troponin I < 0.012 Impressions: Renal Ultrasound 04/19/18 00:00 IMPRESSION: Status post left nephrectomy. Simple right renal cyst. copyright 2010 [employer]- All Rights Reserved Chest X-Ray 04/19/18 11:46 IMPRESSION: NO ACUTE FINDINGS. Head CT 04/19/18 11:50 IMPRESSION: MILD CHRONIC CHANGES OF ATROPHY AND MICROVASCULAR ISCHEMIA. NO ACUTE PROCESS. EVIDENCE OF ACUTE STROKE: NO. Head MRI 04/19/18 13:11 IMPRESSION: Negative for acute or sub-acute infarction. EVIDENCE OF ACUTE STROKE: NO. Assessment & Plan - Diagnosis (1) Parkinsonism Qualifiers: Parkinsonism type: Parkinson's disease Qualified Code(s): G20 - Parkinson's disease Is this a current diagnosis for this admission?: Yes Plan: Will get the physical therapy evaluations Follow outpatients neurology Discussed with the patient and the (2) Hyperthyroidism Is this a current diagnosis for this admission?: Yes Plan: TSH is currently all stable (3) Acute kidney injury Is this a current diagnosis for this admission?: Yes Plan: Is currently see her Dr. Montgomery as an outpatient patient's creatinine is all stable (4) Anemia Qualifiers: Anemia type: unspecified type Qualified Code(s): D64.9 - Anemia, unspecified Is this a current diagnosis for this admission?: Yes (5) Hypertension Qualifiers: Hypertension type: essential hypertension Qualified Code(s): I10 - Essential (primary) hypertension Is this a current diagnosis for this admission?: Yes Plan: List of current medications (6) Visual hallucinations Is this a current diagnosis for this admission?: Yes Plan: That the patient and her Depakote and BuSpar - Time Time Spent with patient: 15-24 minutes Medications reviewed and adjusted accordingly: Yes Anticipated discharge: Home Within: within 24 hours - Plan Summary Plan Summary: Discussed with the patient and the continues to current medications start the new medication as per psych suggestions follow outpatients neurology hopefully discharge tomorrow
[2018-04-22] MEDS: METHIMAZOLE 5 MG TABLET PO SCH (14:13)
[2018-04-22] MEDS: ATORVASTATIN CALCIUM 10 MG TABLET PO SCH (21:41)
[2018-04-23] MEDS: CARBIDOPA/LEVODOPA 25-100 MG TABLET PO SCH (05:12)
[2018-04-23] MEDS: TIZANIDINE HCL 4 MG TABLET PO SCH (05:13)
[2018-04-23 06:04] LABS: ANION GAP 6 (5-19); BLOOD UREA NITROGEN 20 mg/dL (7-20); CALCIUM 9.6 mg/dL (8.4-10.2); CARBON DIOXIDE 28 mmol/L (22-30); CHLORIDE 106 mmol/L (98-107); GLUCOSE 99 mg/dL (75-110); SODIUM 140.3 mmol/L (137-145)
--- NOTE | 2018-04-23 08:54 | PDOC DISCHARGE SUMMARY ---
General - Admit/Disc Date/PCP Admission Date/Primary Care Provider: 04/19/18 18:16 MAREK CAMP MD Discharge Date: 04/23/18 - Discharge Diagnosis (1) Parkinsonism Is this a current diagnosis for this admission?: Yes Summary: As per the clinical presentations patient will start on a Sinemet and have appointment to see a neurology on April 25 for further evaluations\discussed with the patient and the family discussed with the neurology for further continuous medication or change the medications (2) Hyperthyroidism Is this a current diagnosis for this admission?: Yes Summary: Current medications (3) Acute kidney injury Is this a current diagnosis for this admission?: Yes Summary: Currently back to the baseline patients see outpatients Dr. Montgomery (4) Anemia Is this a current diagnosis for this admission?: Yes Summary: All stable (5) Hypertension Is this a current diagnosis for this admission?: Yes Summary: Continues to current medications (6) Visual hallucinations Is this a current diagnosis for this admission?: Yes Summary: Patient is feeling much better Psych consult was done suggest the Josee Follow outpatient psych and neurology - Additional Information Discharge Diet: Regular Discharge Activity: Activity As Tolerated Prescriptions: Buspirone HCl [Buspar 10 mg Tablet] 5 mg PO Q12 #60 tablet Carbidopa/Levodopa [Sinemet 25-100 mg Tablet] 1 tab PO Q8 #90 tablet Divalproex Sodium [Depakote Er 250 Mg Tablet] 250 mg PO BID #60 tab.sr.24h Metoprolol Tartrate [Lopressor 25 mg Tablet] 25 mg PO Q12 #60 tablet Home Medications: Cholecalciferol (Vitamin D3) [Vitamin D3 1000 Unit Tablet] 2,000 unit PO DAILY 04/20/18 Clonidine HCl [Catapres 0.1 mg Tablet] 0.1 mg PO Q12 04/20/18 Methimazole [Tapazole 5 mg Tablet] 10 mg PO DAILY 04/20/18 Nifedipine [Nifedipine ER] 60 mg PO DAILY 04/20/18 Pravastatin Sodium [Pravachol] 40 mg PO DAILY 04/20/18 Tizanidine HCl [Zanaflex 4 mg Tablet] 4 mg PO Q8 04/20/18 Buspirone HCl [Buspar 10 mg Tablet] 5 mg PO Q12 #60 tablet 04/23/18 Carbidopa/Levodopa [Sinemet 25-100 mg Tablet] 1 tab PO Q8 #90 tablet 02/27/19 Divalproex Sodium [Depakote Er 250 Mg Tablet] 250 mg PO BID #60 tab.sr.24h 04/23/18 Metoprolol Tartrate [Lopressor 25 mg Tablet] 25 mg PO Q12 #60 tablet 04/23/18 History of Present Illness History of Present Illness: AMIRA SHERIDAN is a 72 year old male Patient was admitted because of the visual hallucination and a tremor and most likely suggesting the Parkinson's disorders and start on the medications and a patients feel better Hospital Course Hospital Course: Is a 72-year-old male came to the emergency department with the visual hallucinations and a tremor Patient is seen by the neurology as outpatient and suggest the essential tremor but the attending congestions most likely suggests Parkinson's with the presentations start the patient on a Sinemet Patient also seen by the psychiatrist considers the Depakote Patient seen by the physical therapy The patient's MRI and a CT of the head was negative for any acute finding Patient's other blood work was also stable Patient with chronic kidney disease with some acute injury which all resolved with IV fluid Patient is otherwise doing well and anxious to go home Discussed with the on the bedside regarding the patient's current conditions follow outpatients neurology in 1 week appointment is already made Patient also follow continues care with a psychiatrist as outpatients Patient other medical problem is all stable Patient is walking the hallway and the p.o. intake is good Physical Exam Vital Signs: Temp Pulse Resp BP Pulse Ox 98.6 F 76 16 169/92 H 95 04/23/18 03:37 04/23/18 03:37 04/23/18 03:37 04/23/18 03:37 04/23/18 03:37 Intake & Output 04/22/18 04/23/18 04/24/18 06:59 06:59 06:59 Intake Total 909 691 Output Total 2650 1000 Balance -1741 -309 Weight 88.3 kg 89.7 kg General appearance: PRESENT: no acute distress, well-developed, well-nourished Head exam: PRESENT: atraumatic, normocephalic Eye exam: PRESENT: conjunctiva pink, EOMI, PERRLA. ABSENT: scleral icterus Ear exam: PRESENT: normal external ear exam Mouth exam: PRESENT: moist, tongue midline Neck exam: PRESENT: full ROM. ABSENT: carotid bruit, JVD, lymphadenopathy, thyromegaly Respiratory exam: PRESENT: clear to auscultation donita Cardiovascular exam: PRESENT: RRR. ABSENT: diastolic murmur, rubs, systolic murmur Vascular exam: PRESENT: normal capillary refill GI/Abdominal exam: PRESENT: normal bowel sounds, soft. ABSENT: distended, guarding, mass, organolmegaly, rebound, tenderness Rectal exam: PRESENT: deferred Musculoskeletal exam: PRESENT: ambulatory Neurological exam: PRESENT: alert, awake, oriented to person, oriented to place, oriented to time, oriented to situation, CN II-XII grossly intact. ABSENT: motor sensory deficit Psychiatric exam: PRESENT: appropriate affect, normal mood. ABSENT: homicidal ideation, suicidal ideation Skin exam: PRESENT: dry, intact, warm. ABSENT: cyanosis, rash Results Laboratory Results: 04/22/18 05:15 04/23/18 04:58 04/23/18 04:58 Sodium 140.3 Potassium 4.0 Chloride 106 Carbon Dioxide 28 Anion Gap 6 BUN 20 Creatinine 1.46 H Est GFR ( Amer) 58 L Est GFR (Non-Af Amer) 48 L Glucose 99 Calcium 9.6 04/19/18 04/19/18 12:16 12:16 Creatine Kinase 155 Troponin I < 0.012 Impressions: Renal Ultrasound 04/19/18 00:00 IMPRESSION: Status post left nephrectomy. Simple right renal cyst. copyright 2011 [employer]- All Rights Reserved Chest X-Ray 04/19/18 11:46 IMPRESSION: NO ACUTE FINDINGS. Head CT 04/19/18 11:50 IMPRESSION: MILD CHRONIC CHANGES OF ATROPHY AND MICROVASCULAR ISCHEMIA. NO ACUTE PROCESS. EVIDENCE OF ACUTE STROKE: NO. Head MRI 04/19/18 13:11 IMPRESSION: Negative for acute or sub-acute infarction. EVIDENCE OF ACUTE STROKE: NO. Qualifiers - * PATIENT BEING DISCHARGED WITH ANY OF THE FOLLOWING DIAGNOSIS: No VTE patient discharged on overlapping Therapy?: Yes Plan Time Spent: Greater than 30 Minutes - Plan 1 week in office Follow with the neurology and psych
[2018-04-23 09:24] VITALS: BP 151/96
[2018-04-23] MEDS: ENOXAPARIN SODIUM INJ 30 MG/0.3 ML DISP.SYRIN SUBCUT SCH (09:43)
[2018-04-23] MEDS: CLONIDINE HCL 0.1 MG TABLET PO SCH (09:43)
[2018-04-23] MEDS: CHOLECALCIFEROL (D3) 1,000 UNIT TABLET PO SCH (09:43)
[2018-04-23] MEDS: BUSPIRONE HCL 10 MG TABLET PO SCH (09:43)
[2018-04-23] MEDS: METHIMAZOLE 5 MG TABLET PO SCH (09:44)
[2018-04-23] MEDS: NIFEDIPINE 30 MG TAB.ER.24 PO SCH (09:44)
[2018-04-23] MEDS: DIVALPROEX SODIUM 250 MG TABLET.DR PO SCH (09:44)
[2018-04-23] MEDS: METOPROLOL TARTRATE 25 MG TABLET PO SCH (09:44)
--- NOTE | 2018-04-23 10:35 | EKG REPORT ---
SEVERITY:- BORDERLINE ECG - SINUS TACHYCARDIA BORDERLINE T ABNORMALITIES, INFERIOR LEADS BORDERLINE PROLONGED QT INTERVAL : Confirmed by: Giovani Minor 23-Apr-2018 10:34:01
== END 2018-04-23 10:04 | disposition home health service (06) ==
LOC: ER 11:30 → EH 18:16 → 3W 20:32
PROVIDERS: ADMIT Internal Medicine; ATTEND Family Medicine
DX: G20 Parkinson's disease (principal); E05.90 Thyrotoxicosis, unspecified without thyrotoxic crisis or storm; I12.9 Hypertensive chronic kidney disease with stage 1 through stage 4 chronic kidney disease, or unspecified chronic kidney disease; N18.3 Chronic kidney disease, stage 3 (moderate); N17.9 Acute kidney failure, unspecified; E11.22 Type 2 diabetes mellitus with diabetic chronic kidney disease; D64.9 Anemia, unspecified; R44.1 Visual hallucinations; I25.10 Atherosclerotic heart disease of native coronary artery without angina pectoris; R41.0 Disorientation, unspecified; N28.1 Cyst of kidney, acquired; G89.29 Other chronic pain; M54.5 Low back pain; Z79.899 Other long term (current) drug therapy; Z90.5 Acquired absence of kidney; Z85.528 Personal history of other malignant neoplasm of kidney; Z90.79 Acquired absence of other genital organ(s); Z85.46 Personal history of malignant neoplasm of prostate; Z87.442 Personal history of urinary calculi
CPT/HCPCS: 93005 ×3; 99285; 96361; 96374; 36415 ×4; 87086; 80307 ×4; 82140; 82550; 83605; 84443; 85025 ×2; 85610; 80048 ×2; 80053 ×2; 81001; 84484; 70551; 71045; 76775; 70450; 93010 ×3; 97110; 97116; 97163; A9270 ×34; J2060; J1650 ×3; J7030 ×2; J7040; J3490

== ENCOUNTER → 2018-07-24 | Outpatient (CLI) | payer MEDICARE, OTHER, BC ==
[2018-07-24 10:58] LABS: ABSOLUTE BASOPHILS # (AUTO) 0.1 10^3/uL (0.0-0.2); ABSOLUTE EOSINOPHILS # (AUTO) 0.1 10^3/uL (0.0-0.6); ABSOLUTE LYMPHOCYTES (AUTO) 2.6 10^3/uL (0.5-4.7); ABSOLUTE MONOCYTES (AUTO) 0.4 10^3/uL (0.1-1.4); ABSOLUTE NEUT (AUTO) 2.6 10^3/uL (1.7-8.2); BASOPHILS % (AUTO) 1.7 % (0-2); HEMATOCRIT 37.8 % (37.9-51.0); HEMOGLOBIN 11.8 g/dL (13.5-17.0); LYMPHOCYTES % (AUTO) 44.5 % (13-45); MEAN CORPUSCULAR HEMOGLOBIN 24.6 pg (27.0-33.4); MEAN CORPUSCULAR HGB CONC 31.1 g/dL (32.0-36.0); MEAN CORPUSCULAR VOLUME 79 fl (80-97); MONOCYTES % (AUTO) 7.5 % (3-13); PLATELET COUNT 255 10^3/uL (150-450); RED BLOOD COUNT 4.78 10^6/uL (4.35-5.55); RED CELL DISTRIBUTION WIDTH 16.3 % (11.5-14.0); SEGMENTED NEUTROPHILS % (AUTO) 44.3 % (42-78); TOTAL CELLS COUNTED % (AUTO) 100 %; WHITE BLOOD COUNT 5.8 10^3/uL (4.0-10.5)
[2018-07-24 11:28] LABS: ALANINE AMINOTRANSFERASE 14 U/L (21-72); ALBUMIN 4.2 g/dL (3.5-5.0); ALKALINE PHOSPHATASE 104 U/L (38-126); ANION GAP 8 (5-19); ASPARTATE AMINO TRANSFERASE 15 U/L (17-59); BILIRUBIN,DIRECT 0.3 mg/dL (0.0-0.4); BILIRUBIN,TOTAL 0.7 mg/dL (0.2-1.3); BLOOD UREA NITROGEN 16 mg/dL (7-20); CALCIUM 9.9 mg/dL (8.4-10.2); CARBON DIOXIDE 34 mmol/L (22-30); CHLORIDE 101 mmol/L (98-107); CHOLESTEROL 171.59 mg/dL (0-200); GLUCOSE 90 mg/dL (75-110); POTASSIUM 4.6 mmol/L (3.6-5.0); SODIUM 142.9 mmol/L (137-145); TOTAL PROTEIN 8.1 g/dL (6.3-8.2); TRIGLYCERIDES 100 mg/dL (<150)
[2018-07-24 11:38] LABS: DIRECT LDL 100 mg/dL (<100)
[2018-07-24 11:44] LABS: FREE T4 (FREE THYROXINE) 0.96 ng/dL (0.78-2.19)
[2018-07-24 11:58] LABS: THYROID STIMULATING HORMONE 0.91 uIU/mL (0.47-4.68)
== END ==
LOC: LAB 09:45
PROVIDERS: ATTEND Psychiatry & Neurology Psychiatry
DX: F23 Brief psychotic disorder (principal)
CPT/HCPCS: 36415; 80053; 80061; 82306; 82607; 84439; 84443; 84480; 85025; 86800

== ENCOUNTER 2018-09-17 10:38 | Emergency (ER) | payer OTHER, BC, MEDICARE ==
--- NOTE | 2018-09-17 11:07 | ER Document Report ---
ED Medical Screen (RME) - General Chief Complaint: High Blood Pressure Stated Complaint: ELEVATED BLOOD PRESSURE Time Seen by Provider: 09/17/18 10:56 Primary Care Provider: MAREK CAMP MD [Primary Care Provider] - Follow up as needed Mode of Arrival: Ambulatory Information source: Patient Notes: 72-year-old male presented to ED for elevated blood pressure and need for about valproic acid level. Patient is not on Depakote so I will call the behavioral physician to find out why they are ordering a valproic acid level. He does have a elevated blood pressure while in the emergency room. He does have a history of high blood pressure diabetes kidney failure and thyroid abnormalities. He is alert oriented respirations regular and unlabored speaking in full sentences. He states he does not know why they are asking for valproic acid level. The office stated he is getting depakote through their office # [phone] spoke with Garrett. I have greeted and performed a rapid initial assessment of this patient. A comprehensive ED assessment and evaluation of the patient, analysis of test results and completion of medical decision making process will be conducted by an additional ED providers. Dictation of this chart was performed using voice recognition software; therefore, there may be some unintended grammatical errors. TRAVEL OUTSIDE OF THE [place] IN LAST 30 DAYS: No - Related Data Allergies/Adverse Reactions: No Known Allergies Allergy (Verified 09/17/18 10:51) Past Medical History - Social History Family history: DM, Hypertension, Malignancy - Past Medical History Cardiac Medical History: Reports: Hx Coronary Artery Disease, Hx Hypertension Denies: Hx Heart Attack Pulmonary Medical History: Denies: Hx Asthma, Hx Bronchitis, Hx COPD, Hx Pneumonia Neurological Medical History: Denies: Hx Cerebrovascular Accident, Hx Seizures Endocrine Medical History: Reports: Hx Diabetes Mellitus Type 2, Hx Hyperthyroidism, Hx Hypothyroidism Renal/ Medical History: Reports: Hx Kidney Stones - left kidney cacer and removed protate cancer and removed. Denies: Hx Peritoneal Dialysis Malignancy Medical History: Reports Hx Prostate Cancer, Reports Hx Renal (Kidney) Cancer Musculoskeltal Medical History: Denies Hx Arthritis, Reports Hx Musculoskeletal Deformity, Reports Hx Musculoskeletal Trauma Traumatic Medical History: Reports: Hx Fractures Past Surgical History: Reports: Hx Kidney (Renal Surgery), Hx Orthopedic Surgery - Immunizations Immunizations up to date: Yes Hx Diphtheria, Pertussis, Tetanus Vaccination: Yes Physical Exam - Vital signs Vitals: Temp Pulse Resp BP Pulse Ox 97.6 F 96 16 197/105 H 98 09/17/18 10:44 09/17/18 10:44 09/17/18 10:44 09/17/18 10:44 09/17/18 10:44 Course - Vital Signs Vital signs: Temp Pulse Resp BP Pulse Ox 97.6 F 96 16 197/105 H 98 09/17/18 10:44 09/17/18 10:44 09/17/18 10:44 09/17/18 10:44 09/17/18 10:44 Doctor's Discharge - Discharge Referrals: MAREK CAMP MD [Primary Care Provider] - Follow up as needed
[2018-09-17 11:39] LABS: APPEARANCE,URINE CLEAR; BILIRUBIN,URINE NEGATIVE (NEGATIVE); COLOR,URINE STRAW; GLUCOSE, URINE NEGATIVE (NEGATIVE); KETONES,URINE NEGATIVE (NEGATIVE); LEUKOCYTE ESTERASE,URINE NEGATIVE (NEGATIVE); NITRITE,URINE NEGATIVE (NEGATIVE); PROTEIN,URINE NEGATIVE (NEGATIVE); URINE SPECIFIC GRAVITY 1.004; UROBILINOGEN,URINE NEGATIVE mg/dL (<2.0)
[2018-09-17 11:45] LABS: ABSOLUTE BASOPHILS # (AUTO) 0.1 10^3/uL (0.0-0.2); ABSOLUTE EOSINOPHILS # (AUTO) 0.1 10^3/uL (0.0-0.6); ABSOLUTE LYMPHOCYTES (AUTO) 2.4 10^3/uL (0.5-4.7); ABSOLUTE MONOCYTES (AUTO) 0.3 10^3/uL (0.1-1.4); ABSOLUTE NEUT (AUTO) 2.6 10^3/uL (1.7-8.2); EOSINOPHILS % (AUTO) 1.7 % (0-6); HEMATOCRIT 36.4 % (37.9-51.0); HEMOGLOBIN 11.4 g/dL (13.5-17.0); LYMPHOCYTES % (AUTO) 43.6 % (13-45); MEAN CORPUSCULAR HEMOGLOBIN 24.1 pg (27.0-33.4); MEAN CORPUSCULAR HGB CONC 31.2 g/dL (32.0-36.0); MEAN CORPUSCULAR VOLUME 77 fl (80-97); MONOCYTES % (AUTO) 6.3 % (3-13); PLATELET COUNT 234 10^3/uL (150-450); RED BLOOD COUNT 4.71 10^6/uL (4.35-5.55); RED CELL DISTRIBUTION WIDTH 17.5 % (11.5-14.0); SEGMENTED NEUTROPHILS % (AUTO) 47.4 % (42-78); TOTAL CELLS COUNTED % (AUTO) 100 %; WHITE BLOOD COUNT 5.4 10^3/uL (4.0-10.5)
[2018-09-17 12:04] LABS: ALANINE AMINOTRANSFERASE 21 U/L (21-72); ALBUMIN 4.5 g/dL (3.5-5.0); ALKALINE PHOSPHATASE 95 U/L (38-126); ANION GAP 10 (5-19); ASPARTATE AMINO TRANSFERASE 18 U/L (17-59); BILIRUBIN,DIRECT 0.2 mg/dL (0.0-0.4); BILIRUBIN,TOTAL 0.8 mg/dL (0.2-1.3); BLOOD UREA NITROGEN 13 mg/dL (7-20); CALCIUM 9.8 mg/dL (8.4-10.2); CARBON DIOXIDE 31 mmol/L (22-30); CHLORIDE 101 mmol/L (98-107); GLUCOSE 91 mg/dL (75-110); POTASSIUM 4.1 mmol/L (3.6-5.0); TOTAL PROTEIN 8.5 g/dL (6.3-8.2)
[2018-09-17 16:31] VITALS: BP 189/139
[2018-09-17] MEDS ORDERED: NIFEDIPINE 10 MG CAPSULE PO ONE (17:47)
[2018-09-17] MEDS ORDERED: METOPROLOL TARTRATE 25 MG TABLET PO ONE (17:47)
--- NOTE | 2018-09-17 17:51 | ER Document Report ---
ED Blood Pressure Problem - General Chief Complaint: High Blood Pressure Stated Complaint: ELEVATED BLOOD PRESSURE Time Seen by Provider: 09/17/18 10:56 Primary Care Provider: MAREK CAMP MD [Primary Care Provider] - Follow up as needed Mode of Arrival: Ambulatory Notes: This is a pleasant 72-year-old male sent over from mental health office for evaluation of "hypertension". Patient states that he has not been taking his medication because he does not like the way it makes him feel. When they did his vitals at the doctor's office today his blood pressure was high so they sent him here. At no time has patient had chest pain or shortness of breath. He denies any symptoms at this time. Actually laughing and joking in very pleasant to speak with at this time. TRAVEL OUTSIDE OF THE [place] IN LAST 30 DAYS: No - HPI Patient complains to provider of: High blood pressure Onset/Duration: Gradual Quality of pain: No pain Severity: Mild Pain Level: Denies - Related Data Allergies/Adverse Reactions: No Known Allergies Allergy (Verified 09/17/18 10:51) Past Medical History - General Information source: Patient - Social History Smoking Status: Never Smoker Chew tobacco use (# tins/day): No Frequency of alcohol use: None Drug Abuse: None Lives with: Family Family History: Reviewed & Not Pertinent Patient has suicidal ideation: No Patient has homicidal ideation: No - Past Medical History Cardiac Medical History: Reports: Hx Coronary Artery Disease, Hx Hypertension Denies: Hx Heart Attack Pulmonary Medical History: Denies: Hx Asthma, Hx Bronchitis, Hx COPD, Hx Pneumonia Neurological Medical History: Denies: Hx Cerebrovascular Accident, Hx Seizures Endocrine Medical History: Reports: Hx Diabetes Mellitus Type 2, Hx Hyperthyroidism, Hx Hypothyroidism Renal/ Medical History: Reports: Hx Kidney Stones - left kidney cacer and removed protate cancer and removed. Denies: Hx Peritoneal Dialysis Malignancy Medical History: Reports Hx Prostate Cancer, Reports Hx Renal (Kidney) Cancer Musculoskeletal Medical History: Denies Hx Arthritis, Reports Hx Musculoskeletal Deformity, Reports Hx Musculoskeletal Trauma Traumatic Medical History: Reports: Hx Fractures Past Surgical History: Reports: Hx Kidney (Renal Surgery), Hx Orthopedic Surgery - Immunizations Immunizations up to date: Yes Hx Diphtheria, Pertussis, Tetanus Vaccination: Yes Review of Systems - Review of Systems Notes: Constitutional: denies: Chills, Diaphoresis, Fever, Malaise, Weakness EENT: denies: Eye discharge, Blurred vision, Tearing, Double vision, Nose congestion, Nose discharge, Throat swelling, Mouth pain Cardiovascular: denies: Palpitations, Heart racing, Orthopnea, Dyspnea, Chest pain Respiratory: denies: Cough, Hurts to breathe, Wheezing, Shortness of breath Gastrointestinal: denies: Abdominal pain, Diarrhea, Nausea, Vomiting, Black stools, bright red blood in stool Genitourinary: denies: Burning, Dysuria, Discharge, Frequency, Flank pain, Hematuria Musculoskeletal: denies: Joint pain, Joint swelling, Muscle pain, Muscle stiffness, back pain Hematologic/Lymphatic: denies: Anemia, Easy bleeding, Easy bruising, Blood clots Neurological/Psychological: denies: Confusion, Dementia, Depression, Loss of consciousness. Does have a history of PTSD. Skin: No lesions, no masses, no skin breakdown, no abscesses Physical Exam - Vital signs Vitals: Temp Pulse Resp BP Pulse Ox 97.6 F 96 16 158/122 H 98 09/17/18 10:42 09/17/18 10:42 09/17/18 10:42 09/17/18 10:42 09/17/18 10:42 Interpretation: Hypertensive - General General appearance: Appears well, Alert - HEENT Head: Normocephalic, Atraumatic Eyes: Normal Pupils: PERRL - Respiratory Respiratory status: No respiratory distress Chest status: Nontender Breath sounds: Normal Chest palpation: Normal - Cardiovascular Rhythm: Regular Heart sounds: Normal auscultation Murmur: No - Abdominal Inspection: Normal Distension: No distension Bowel sounds: Normal Tenderness: Nontender Organomegaly: No organomegaly - Back Back: Normal, Nontender - Extremities General upper extremity: Normal inspection, Nontender, Normal color, Normal ROM, Normal temperature General lower extremity: Normal inspection, Nontender, Normal color, Normal ROM, Normal temperature, Normal weight bearing. No: Tricia's sign - Neurological Neuro grossly intact: Yes Cognition: Normal Orientation: AAOx4 Mike Coma Scale Eye Opening: Spontaneous [place] Coma Scale Verbal: Oriented [place] Coma Scale Motor: Obeys Commands [place] Coma Scale Total: 15 Speech: Normal Motor strength normal: LUE, RUE, LLE, RLE Sensory: Normal - Psychological Associated symptoms: Normal affect, Normal mood - Skin Skin Temperature: Warm Skin Moisture: Dry Skin Color: Normal Course - Re-evaluation Re-evalutation: 09/17/18 18:31 Patient is asymptomatic at this time. Blood pressure is coming down nicely. Depakote level low so have given him a dose of Depakote here as well his blood pressure medications. Patient maintains that he has no chest pain shortness of breath or other issues. States that he went to his mental health visit today and his blood pressure was high and they sent him here. Comfortable at this time discharge patient in stable condition. 09/17/18 18:32 Laboratory 09/17/18 09/17/18 09/17/18 11:20 11:20 11:20 WBC 5.4 RBC 4.71 Hgb 11.4 L Hct 36.4 L MCV 77 L MCH 24.1 L MCHC 31.2 L RDW 17.5 H Plt Count 234 Seg Neutrophils % 47.4 Lymphocytes % 43.6 Monocytes % 6.3 Eosinophils % 1.7 Basophils % 1.0 Absolute Neutrophils 2.6 Absolute Lymphocytes 2.4 Absolute Monocytes 0.3 Absolute Eosinophils 0.1 Absolute Basophils 0.1 Sodium 141.5 Potassium 4.1 Chloride 101 Carbon Dioxide 31 H Anion Gap 10 BUN 13 Creatinine 1.40 H Est GFR ( Amer) > 60 Est GFR (Non-Af Amer) 50 L Glucose 91 Calcium 9.8 Total Bilirubin 0.8 Direct Bilirubin 0.2 Neonat Total Bilirubin Not Reportable Neonat Direct Bilirubin Not Reportable Neonat Indirect Bili Not Reportable AST 18 ALT 21 Alkaline Phosphatase 95 Total Protein 8.5 H Albumin 4.5 Urine Color STRAW Urine Appearance CLEAR Urine pH 8.0 Ur Specific [place] 1.004 Urine Protein NEGATIVE Urine Glucose (UA) NEGATIVE Urine Ketones NEGATIVE Urine Blood NEGATIVE Urine Nitrite NEGATIVE Urine Bilirubin NEGATIVE Urine Urobilinogen NEGATIVE Ur Leukocyte Esterase NEGATIVE Urine WBC (Auto) 0 Urine RBC (Auto) 0 Urine Mucus (Auto) RARE Urine Ascorbic Acid NEGATIVE Valproic Acid 25.9 L - Vital Signs Vital signs: Temp Pulse Resp BP Pulse Ox 97.7 F 88 20 189/139 H 100 09/17/18 16:24 09/17/18 16:24 09/17/18 16:24 09/17/18 16:24 09/17/18 16:24 - Laboratory Result Diagrams: 09/17/18 11:20 09/17/18 11:20 Laboratory results interpreted by me: 09/17/18 09/17/18 11:20 11:20 Hgb 11.4 L Hct 36.4 L MCV 77 L MCH 24.1 L MCHC 31.2 L RDW 17.5 H Carbon Dioxide 31 H Creatinine 1.40 H Est GFR (Non-Af Amer) 50 L Total Protein 8.5 H Valproic Acid 25.9 L Discharge - Discharge Clinical Impression: Hypertension Qualifiers: Hypertension type: unspecified Qualified Code(s): I10 - Essential (primary) hypertension Condition: Good Disposition: HOME, SELF-CARE Instructions: High Blood Pressure, Requiring Treatment ([facility]) Additional Instructions: Take all of your medications especially your blood pressure medication even though it may make you sleepy. Is a very important to get your blood pressure under control. Please follow-up with your primary care doctor and mental health providers. As mentioned, there is a therapy that seems to be quite helpful for people with PTSD. The therapy is known as EMDR. This has helped many [place] veterans like yourself achieve freedom and relief from their PTSD. There are a few therapist here in [place] that do this. You will need to call and make an appointment. In the event you have any worsening symptoms or concerns please return. Please call [facility] at: . The address is: [address], [place] [address] Referrals: MAREK CAMP MD [Primary Care Provider] - Follow up as needed
[2018-09-17] MEDS ORDERED: CLONIDINE HCL 0.1 MG TABLET PO ONE (18:31)
[2018-09-17] MEDS ORDERED: DIVALPROEX SODIUM 250 MG TAB.SR.24H PO ONE (18:31)
== END 2018-09-17 19:05 | disposition home or self-care (01) ==
LOC: ER 10:38
DX: I10 Essential (primary) hypertension (principal); T50.906A Underdosing of unspecified drugs, medicaments and biological substances, initial encounter; Z91.128 Patient's intentional underdosing of medication regimen for other reason; Z91.14 Patient's other noncompliance with medication regimen; I25.10 Atherosclerotic heart disease of native coronary artery without angina pectoris; E11.9 Type 2 diabetes mellitus without complications; Z85.46 Personal history of malignant neoplasm of prostate; Z85.528 Personal history of other malignant neoplasm of kidney
CPT/HCPCS: 99283; 36415; 85025; 80053; 81001; 80164; J3490 ×2

== ENCOUNTER → 2018-11-11 | Outpatient (CLI) | payer MEDICARE, OTHER, BC ==
[2018-11-11 09:30] LABS: HEMATOCRIT 31.8 % (37.9-51.0); HEMOGLOBIN 9.8 g/dL (13.5-17.0); MEAN CORPUSCULAR HEMOGLOBIN 24.1 pg (27.0-33.4); MEAN CORPUSCULAR VOLUME 78 fl (80-97); PLATELET COUNT 232 10^3/uL (150-450); RED BLOOD COUNT 4.09 10^6/uL (4.35-5.55); RED CELL DISTRIBUTION WIDTH 17.4 % (11.5-14.0); WHITE BLOOD COUNT 4.9 10^3/uL (4.0-10.5)
[2018-11-11 09:46] LABS: ALBUMIN 3.8 g/dL (3.5-5.0); ALKALINE PHOSPHATASE 79 U/L (38-126); ANION GAP 7 (5-19); ASPARTATE AMINO TRANSFERASE 15 U/L (17-59); BILIRUBIN,TOTAL 0.6 mg/dL (0.2-1.3); BLOOD UREA NITROGEN 16 mg/dL (7-20); CALCIUM 9.4 mg/dL (8.4-10.2); CARBON DIOXIDE 30 mmol/L (22-30); CHLORIDE 103 mmol/L (98-107); CHOLESTEROL 147.11 mg/dL (0-200); GLUCOSE 101 mg/dL (75-110); TOTAL PROTEIN 7.4 g/dL (6.3-8.2); TRIGLYCERIDES 86 mg/dL (<150)
[2018-11-11 09:57] LABS: DIRECT LDL 99 mg/dL (<100)
[2018-11-11 10:33] LABS: ABSOLUTE LYMPHOCYTES# (MANUAL) 2.8 10^3/uL (0.5-4.7); ABSOLUTE MONOCYTES # (MANUAL) 0.4 10^3/uL (0.1-1.4); BASOPHILS % (MANUAL) 0 % (0-2); EOSINOPHILS % (MANUAL) 5 % (0-6); LYMPHOCYTES % (MANUAL) 56 % (13-45); MONOCYTES % (MANUAL) 8 % (3-13); SEGMENTED NEUTROPHILS % (MAN) 29 % (42-78); TOTAL CELLS COUNTED 100
[2018-11-11 10:34] LABS: ANISOCYTOSIS 1+; HYPOCHROMASIA 1+; POIKILOCYTOSIS 1+
[2018-11-11 10:35] LABS: OVALOCYTES SLIGHT; PLATELET COMMENT ADEQUATE; SCHISTOCYTES SLIGHT; TEAR DROP CELLS SLIGHT
== END ==
LOC: LAB 08:47
PROVIDERS: ATTEND Psychiatry & Neurology Psychiatry
DX: F23 Brief psychotic disorder (principal)
CPT/HCPCS: 36415; 80053; 80061; 80164; 84443; 85025

== ENCOUNTER → 2018-12-25 | Outpatient (CLI) | payer OTHER, BC ==
--- NOTE | 2018-12-25 10:58 | RADIOLOGY REPORT (SQ) ---
EXAM DESCRIPTION: BARIUM SWALLOW ESOPHAGUS COMPLETED DATE/TIME: 12/25/2018 9:26 am REASON FOR STUDY: R13.10 DYSPHAGIA, UNSPECIFIED R13.10 DYSPHAGIA, UNSPECIFIED COMPARISON: None. TECHNIQUE: Under fluoroscopic guidance, patient ingested effervescent granules followed by thick and thin barium. Fluoroscopic spot images and routine radiographic images acquired and stored on PACS. 12 MM BARIUM TABLET GIVEN: Yes. No significant delay in passage. LIMITATIONS: None. FLUOROSCOPY TIME: FLUORO TIME: 2 minutes 30 seconds of fluoroscopy was used. 18 images saved to PACS. FINDINGS: NEUROMUSCULAR COORDINATION OF SWALLOW: Normal. No aspiration. ESOPHAGEAL MOTILITY: Slow primary peristalsis with tertiary contractions throughout the esophagus. ESOPHAGEAL MUCOSA: Normal mucosa without masses or ulceration. GASTRO-ESOPHAGEAL JUNCTION: Delayed opening of the lower esophageal sphincter causing retention of co ntrast within the esophagus. Mild reflux seen. 12 mm barium tablet passed through the GE junction w ithout delay. NON-GI TRACT STRUCTURES: No significant finding. OTHER: No other significant finding. IMPRESSION: ESOPHAGEAL DYSMOTILITY WITH FINDINGS SUGGESTIVE OF ESOPHAGEAL ACHALASIA DESCRIBED ABO VE. MILD GASTROESOPHAGEAL REFLUX. COMMENT: Quality ID [id number]: Final reports for procedures using fluoroscopy that document radiation exp osure indices, or exposure time and number of fluorographic images (if radiation exposure indices are not available) TECHNICAL DOCUMENTATION: JOB ID: [id number] [employer]- All Rights Reserved Reading location - IP/workstation name: [email or web address] [id number]
== END ==
LOC: RAD 08:32
PROVIDERS: ATTEND Physician Assistant
DX: K22.0 Achalasia of cardia (principal); R13.10 Dysphagia, unspecified; K21.9 Gastro-esophageal reflux disease without esophagitis
CPT/HCPCS: 74220

== ENCOUNTER 2019-03-03 17:20 | Emergency (ER) | payer OTHER, BC ==
--- NOTE | 2019-03-03 17:59 | ER Document Report ---
ED Medical Screen (RME) - General Chief Complaint: Constipation Stated Complaint: ABDOMINAL PAIN Time Seen by Provider: 03/03/19 17:55 Primary Care Provider: CONCHIS GONZALEZ PA [Primary Care Provider] - Follow up as needed Mode of Arrival: Ambulatory Information source: Patient Notes: 73-year-old male presents with complaints of constipation. He reports that he has not had a bowel movement in 3 weeks. Reports he has taken Colace and drank some mag citrate. He reports 3 weeks ago he had positive results after he drank the mag citrate. He complains of some abdominal pain. I have greeted and performed a rapid initial assessment of this patient. A comprehensive ED assessment and evaluation of the patient, analysis of test results and completion of the medical decision making process will be conducted by additional ED providers. TRAVEL OUTSIDE OF THE [place] IN LAST 30 DAYS: No - Related Data Allergies/Adverse Reactions: No Known Allergies Allergy (Verified 09/17/18 10:51) Past Medical History - Social History Family history: DM, Hypertension, Malignancy - Past Medical History Cardiac Medical History: Reports: Hx Coronary Artery Disease, Hx Hypertension Denies: Hx Heart Attack Pulmonary Medical History: Denies: Hx Asthma, Hx Bronchitis, Hx COPD, Hx Pneumonia Neurological Medical History: Denies: Hx Cerebrovascular Accident, Hx Seizures Endocrine Medical History: Reports: Hx Diabetes Mellitus Type 2, Hx Hyperthyroidism, Hx Hypothyroidism Renal/ Medical History: Reports: Hx Kidney Stones - left kidney cacer and removed protate cancer and removed. Denies: Hx Peritoneal Dialysis Malignancy Medical History: Reports Hx Prostate Cancer, Reports Hx Renal (Kidney) Cancer Musculoskeltal Medical History: Denies Hx Arthritis, Reports Hx Musculoskeletal Deformity, Reports Hx Musculoskeletal Trauma Traumatic Medical History: Reports: Hx Fractures Past Surgical History: Reports: Hx Kidney (Renal Surgery), Hx Orthopedic Surgery - Immunizations Immunizations up to date: Yes Hx Diphtheria, Pertussis, Tetanus Vaccination: Yes Physical Exam - Vital signs Vitals: Temp Pulse Resp BP Pulse Ox 98.4 F 81 16 129/74 H 100 03/03/19 17:33 03/03/19 17:33 03/03/19 17:33 03/03/19 17:33 03/03/19 17:33 Course - Vital Signs Vital signs: Temp Pulse Resp BP Pulse Ox 98.4 F 81 16 129/74 H 100 03/03/19 17:33 03/03/19 17:33 03/03/19 17:33 03/03/19 17:33 03/03/19 17:33 Doctor's Discharge - Discharge Referrals: CONCHIS GONZALEZ PA [Primary Care Provider] - Follow up as needed
--- NOTE | 2019-03-03 18:44 | RADIOLOGY REPORT (SQ) ---
EXAM DESCRIPTION: ACUTE ABDOMEN SERIES COMPLETED DATE/TIME: 03/03/2019 6:28 pm REASON FOR STUDY: pain constipation COMPARISON: CT abdomen pelvis 10/17/2016 NUMBER OF VIEWS: Three views. TECHNIQUE: Frontal chest, supine abdomen and upright abdomen radiographic images acquired. LIMITATIONS: None. FINDINGS: CHEST: No acute infiltrates. No pleural effusion or pneumothorax. FREE AIR: None. No abnormal gas collections. BOWEL GAS PATTERN: Large amount of stool throughout the colon. Otherwise unremarkable bowel gas jennifer francine CALCIFICATIONS: Calcified pelvic phleboliths. HARDWARE: Clips left retroperitoneum post nephrectomy SOFT TISSUES: No gross mass or suggestion of organomegaly. BONES: Benign bone islands in the right sacrum and right ischium OTHER: No other significant finding. IMPRESSION: Constipation TECHNICAL DOCUMENTATION: JOB ID: [id number] [employer] All Rights Reserved Reading location - IP/workstation name: [email or web address]
[2019-03-03 18:49] LABS: ABSOLUTE BASOPHILS # (AUTO) 0.1 10^3/uL (0.0-0.2); ABSOLUTE EOSINOPHILS # (AUTO) 0.1 10^3/uL (0.0-0.6); ABSOLUTE LYMPHOCYTES (AUTO) 2.7 10^3/uL (0.5-4.7); ABSOLUTE MONOCYTES (AUTO) 0.5 10^3/uL (0.1-1.4); ABSOLUTE NEUT (AUTO) 1.8 10^3/uL (1.7-8.2); BASOPHILS % (AUTO) 1.2 % (0-2); EOSINOPHILS % (AUTO) 1.9 % (0-6); HEMATOCRIT 27.2 % (37.9-51.0); HEMOGLOBIN 8.2 g/dL (13.5-17.0); LYMPHOCYTES % (AUTO) 52.9 % (13-45); MEAN CORPUSCULAR HEMOGLOBIN 22.9 pg (27.0-33.4); MEAN CORPUSCULAR HGB CONC 30.3 g/dL (32.0-36.0); MEAN CORPUSCULAR VOLUME 76 fl (80-97); PLATELET COUNT 284 10^3/uL (150-450); RED BLOOD COUNT 3.59 10^6/uL (4.35-5.55); RED CELL DISTRIBUTION WIDTH 17.1 % (11.5-14.0); TOTAL CELLS COUNTED % (AUTO) 100 %; WHITE BLOOD COUNT 5.1 10^3/uL (4.0-10.5)
[2019-03-03 19:06] LABS: ALBUMIN 3.9 g/dL (3.5-5.0); ALKALINE PHOSPHATASE 63 U/L (38-126); ANION GAP 8 (5-19); ASPARTATE AMINO TRANSFERASE 17 U/L (17-59); BILIRUBIN,DIRECT 0.2 mg/dL (0.0-0.4); BILIRUBIN,TOTAL 0.5 mg/dL (0.2-1.3); BLOOD UREA NITROGEN 16 mg/dL (7-20); CALCIUM 9.4 mg/dL (8.4-10.2); CARBON DIOXIDE 31 mmol/L (22-30); CHLORIDE 102 mmol/L (98-107); GLUCOSE 94 mg/dL (75-110); POTASSIUM 4.5 mmol/L (3.6-5.0); TOTAL PROTEIN 7.9 g/dL (6.3-8.2)
--- NOTE | 2019-03-03 20:29 | ER Document Report ---
ED General - General Chief Complaint: Constipation Stated Complaint: ABDOMINAL PAIN Time Seen by Provider: 03/03/19 17:55 Primary Care Provider: CNOCHIS GONZALEZ PA [Primary Care Provider] - Follow up as needed Mode of Arrival: Ambulatory Information source: Patient TRAVEL OUTSIDE OF THE [place] IN LAST 30 DAYS: No - HPI Onset: Other - over the last month Onset/Duration: Gradual Quality of pain: Achy, Cramping Severity: Moderate Pain Level: Denies Associated symptoms: Other - constipation Exacerbated by: Denies Relieved by: Denies Similar symptoms previously: Yes - several times Recently seen / treated by doctor: Yes - patient has seen his PCP and a GI Doctor. Had a colonoscopy and endoscopy Notes: 73 year old male with a history of DM, HTN, CAD, Kidney Cancer s/p Left Sided Nephrectomy, Prostate Cancer s/p Prostate Removal and most recently a slowly down trending Hemoglobin (patient tells me he had a colonosocopy and endoscopy about 6 weeks ago which showed some polyps alone) here for about 1 month of constipation. The patient says he has tried some stool softeners without improvement. The patient denies nausea, vomiting, abdominal pain, fevers, chills, sweats, urinary symptoms. - Related Data Allergies/Adverse Reactions: No Known Allergies Allergy (Verified 09/17/18 10:51) Past Medical History - General Information source: Patient - Social History Smoking Status: Never Smoker Frequency of alcohol use: None Drug Abuse: None Family History: Reviewed & Not Pertinent Patient has suicidal ideation: No Patient has homicidal ideation: No - Past Medical History Cardiac Medical History: Reports: Hx Coronary Artery Disease, Hx Hypertension Denies: Hx Heart Attack Pulmonary Medical History: Denies: Hx Asthma, Hx Bronchitis, Hx COPD, Hx Pneumonia Neurological Medical History: Denies: Hx Cerebrovascular Accident, Hx Seizures Endocrine Medical History: Reports: Hx Diabetes Mellitus Type 2, Hx Hyperthyroidism, Hx Hypothyroidism Renal/ Medical History: Reports: Hx Kidney Stones - left kidney cacer and removed protate cancer and removed. Denies: Hx Peritoneal Dialysis Malignancy Medical History: Reports Hx Prostate Cancer, Reports Hx Renal (Kidney) Cancer Musculoskeletal Medical History: Denies Hx Arthritis, Reports Hx Musculoskeletal Deformity, Reports Hx Musculoskeletal Trauma Traumatic Medical History: Reports: Hx Fractures Past Surgical History: Reports: Hx Kidney (Renal Surgery), Hx Orthopedic Surgery - Immunizations Immunizations up to date: Yes Hx Diphtheria, Pertussis, Tetanus Vaccination: Yes Review of Systems - Review of Systems Constitutional: No symptoms reported EENT: No symptoms reported Cardiovascular: No symptoms reported Respiratory: No symptoms reported Gastrointestinal: Constipation Genitourinary: No symptoms reported Male Genitourinary: No symptoms reported Musculoskeletal: No symptoms reported Skin: No symptoms reported Hematologic/Lymphatic: No symptoms reported Neurological/Psychological: No symptoms reported Physical Exam - Vital signs Vitals: Temp Pulse Resp BP Pulse Ox 98.4 F 81 16 129/74 H 100 03/03/19 17:33 03/03/19 17:33 03/03/19 17:33 03/03/19 17:33 03/03/19 17:33 - Notes Notes: GENERAL: Well-appearing, well-nourished and in no acute distress. HEAD: Atraumatic, normocephalic. EYES: Pupils equal round and reactive to light, extraocular movements intact, sclera anicteric, conjunctiva are normal. ENT: TMs normal, nares patent, oropharynx clear without exudates. Moist mucous membranes. NECK: Normal range of motion, supple without lymphadenopathy or JVD. LUNGS: Breath sounds clear to auscultation bilaterally and equal. No wheezes rales or rhonchi. HEART: Regular rate and rhythm without murmurs, rubs or gallops. ABDOMEN: Soft, nontender, normoactive bowel sounds. No guarding, no rebound. No masses appreciated. EXTREMITIES: Normal range of motion, no pitting or edema. No clubbing or cyanosis. NEUROLOGICAL: Cranial nerves II through XII grossly intact. Normal speech, normal gait. PSYCH: Normal mood, normal affect. SKIN: Warm, Dry, normal turgor, no rashes or lesions noted. Course - Re-evaluation Re-evalutation: 03/03/19 21:17 The patient is here for constipation for a month and his Xray from today confirms he does in fact have a fair amount of constipation. The patient's labs are unremarkable except for it appears his H/H are slowly down trending. I spoke with his PCP (Dr. Gerber) and explained his labs and imaging and complaint of constipation. Dr. Gerber tells me he knew about the anemia and is working it up. Dr. Gerber will follow up the patient in clinic. The patient recently had a colonoscopy and endoscopy apparently as well. Patient given magnesium citrate in the ER and he was DCed with a script for GoLytely. 03/03/19 21:22 - Vital Signs Vital signs: Temp Pulse Resp BP Pulse Ox 98.4 F 81 16 129/74 H 100 03/03/19 17:33 03/03/19 17:33 03/03/19 17:33 03/03/19 17:33 03/03/19 17:33 - Laboratory Result Diagrams: 03/03/19 18:05 03/03/19 18:05 Laboratory results interpreted by me: 03/03/19 03/03/19 18:05 18:05 RBC 3.59 L Hgb 8.2 L Hct 27.2 L MCV 76 L MCH 22.9 L MCHC 30.3 L RDW 17.1 H Lymph % (Auto) 52.9 H Seg Neutrophils % 35.0 L Carbon Dioxide 31 H Creatinine 1.31 H Est GFR (MDRD) Non-Af 54 L Discharge - Discharge Clinical Impression: Constipation Qualifiers: Constipation type: unspecified constipation type Qualified Code(s): K59.00 - Constipation, unspecified Condition: Stable Disposition: HOME, SELF-CARE Instructions: Constipation (PENDING SALE TO [facility]) Additional Instructions: Follow up with your primary care doctor. Use GOLytely to help with your constipation if over the counter stool softeners do not work. Prescriptions: [id number]/Sod Sulf,Bicarb,Cl/KCl [Golytely Packet] 1 each PO ONCE PRN #1 [email or web address] PRN Reason: Referrals: CONCHIS GONZALEZ PA [Primary Care Provider] - Follow up as needed
[2019-03-03 22:00] VITALS: BP 130/70
== END 2019-03-03 22:00 | disposition home or self-care (01) ==
LOC: ER 17:20
DX: K59.00 Constipation, unspecified (principal); I10 Essential (primary) hypertension; E11.9 Type 2 diabetes mellitus without complications; I25.10 Atherosclerotic heart disease of native coronary artery without angina pectoris; Z98.890 Other specified postprocedural states
CPT/HCPCS: 36415; 74022; 80053; 85025; 99284

== ENCOUNTER 2019-03-11 10:31 | Day surgery (SDC) | payer OTHER, BC ==
[~2019-03-11 10:31] MED LIST: BUPIVACAINE HCL 0.75% INJ/PF (7.5 MG/1 ML) 10 ML SDV OD PRN; CHONDR SU A NA/HYALUR INTRAOC KIT (SURGICARE) ONE; DORZOLAMIDE HCL 2%/TIMOLOL MALEAT 0.5% OPH SOLN 10 ML OD PRN; EPINEPHRINE INJ/PF 1 MG/1 ML AMPULE ONE; KETOROLAC TROMETHAMINE 0.45% 4 DROP/0.4 ML DROPERETTE OD PRN; LIDOCAINE 1%/PHENYLEPHRINE 1.5% 1 ML VIAL ONE; LIDOCAINE 4% INJ/PF (40 MG/ML) 5 ML AMPUL OD PRN
[2019-03-11] MEDS: TROPICAMIDE 1% OPH SOLN 15 ML OD PRN ×3 (11:50→12:10)
[2019-03-11] MEDS: TETRACAINE HCL 0.5% OPH SOLN 4 ML OD PRN ×3 (11:50→12:14)
[2019-03-11] MEDS: BESIFLOXACIN HCL 0.6% OPH SUSP 5 ML BOTTLE OD PRN ×3 (11:50→12:33)
[2019-03-11] MEDS: CYCLOPENTOLATE 0.2%/PHENYLEPHRINE 1% OPH SOLN 2 ML OD PRN ×3 (11:50→12:10)
[2019-03-11] MEDS ORDERED: ONDANSETRON HCL INJ/PF 4 MG/2 ML SDV ONE (11:56)
[2019-03-11] MEDS ORDERED: MIDAZOLAM 2 MG/2 ML INJ ONE (11:56)
[2019-03-11] MEDS ORDERED: FENTANYL CITRATE INJ/PF 100 MCG/2 ML AMPUL ONE (11:57)
--- NOTE | 2019-03-11 15:31 | Operative Report ---
Operative Report-[facility] Operative Report: DATE OF SURGERY: March 11, 2019 PREOPERATIVE DIAGNOSIS: NUCLEAR CATARACT, RIGHT EYE. POSTOPERATIVE DIAGNOSIS: NUCLEAR CATARACT, RIGHT EYE. PROCEDURE PERFORMED: PHACOEMULSIFICATION WITH POSTERIOR CHAMBER INTRAOCULAR LENS IMPLANT, RIGHT EYE. SURGEON: Castillo Hinojosa DO MEDICATIONS AND ANESTHESIA: Versed: IV Versed Tetracaine drops: 1 to 2 drops given as needed COMPLICATION: None INDICATIONS FOR SURGERY: Medical necessity: Best corrected visual acuity worse than 20/40 secondary to cataracts with impairment of ability to carry out needs or desired activities, blurred vision, visual distortion, reduced contrast sensitivity and/or glare with association functional impairment and supporting documentation/testing, and cataracts causing symptomatic impairment of visual functions not corrected with tolerable changes in glasses or contact lenses interfering with activities of daily life. PROCEDURE: Consent: The risks, benefits and alternatives of this procedures was discussed with the patient. The patient read and signed the consent forms, was identified and was seated in the exam chair. IOL: MX 60 E IOL Diopters: 23.0 Phacoemulsification with posterior chamber intraocular lens implant: The face was prepped with 5% povidone iodine solution, and a few drops of 5% povidone iodine solution was instilled into the inferior fornix. A non-fenestrated drape was placed over the eye and the lids were parted with the speculum. A paracentesis was made with a 15 degree blade, and 1% lidocaine MPF followed by viscoelastic was injected into the anterior chamber. A 2.4 mm metal micro- keratome was used to create a temporal clear corneal incision. A circular anterior capsulorrhexis was created, followed by hydro-dissection and hydro- delineation. The phacoemulsification hand piece was inserted and the nucleus was removed with the Phaco chop technique. The irrigation-aspiration hand piece was used to remove the residual cortex, and vacuum the posterior capsule. The capsular bag was inflated and viscoelastic and the above-mentioned IOL was injected into the eye with care to insert both leaning and trailing haptics in the capsular bag. The irrigation/aspiration hand piece was reinserted to remove residual viscoelastic from the capsular bag and anterior chamber. The corneal incision was hydrated, and anterior chamber was inflated with sterile BSS via the paracentesis site, and found to be watertight. Postop medication: 1 drop of prednisolone into operative by followed by 1 drop of Cosopt into operative eye followed by 1 drop of Besivance intraoperative by other:
== END 2019-03-11 13:30 | disposition home or self-care (01) ==
LOC: SC 10:31
PROVIDERS: ATTEND Ophthalmology
DX: H25.11 Age-related nuclear cataract, right eye (principal); Z79.82 Long term (current) use of aspirin; Z79.899 Other long term (current) drug therapy; E05.90 Thyrotoxicosis, unspecified without thyrotoxic crisis or storm; Z85.46 Personal history of malignant neoplasm of prostate; Z85.528 Personal history of other malignant neoplasm of kidney
CPT/HCPCS: 00142; 66984; V2632; J2250; J3490 ×2; J0171; J2405; J2370; 142; J3010

== ENCOUNTER 2019-04-02 16:36 | Inpatient (IN) | payer OTHER, BC ==
--- NOTE | 2019-04-02 18:00 | ER Document Report ---
ED Medical Screen (RME) - General Chief Complaint: Abnormal Lab Results Stated Complaint: POSSIBLE ABNORMAL LABS Time Seen by Provider: 04/02/19 17:57 Primary Care Provider: MAREK CAMP MD [Primary Care Provider] - Follow up as needed Notes: HPI: 73-year-old male with history of anemia and polyps presenting to the emergency department for direct admission for anemia for blood transfusion. Patient follows with Dr. Camp. There were no beds upstairs so patient was told to come through the emergency department for admission. Patient denies chest pain shortness of breath or abdominal pain at this time he denies rectal bleeding. Denies dizziness with standing I have greeted and performed a rapid initial assessment of this patient. A comprehensive ED assessment and evaluation of the patient, analysis of test results and completion of the medical decision making process will be conducted by additional ED providers PHYSICAL EXAMINATION: GENERAL: Well-appearing, well-nourished and in no acute distress. HEAD: Atraumatic, normocephalic. EYES: sclera anicteric, conjunctiva are normal. ENT: Moist mucous membranes. NECK: Normal range of motion LUNGS: Normal work of breathing HEART: 2+ radial pulses bilaterally ABD: limited by positioning for exam in triage. EXTREMITIES: no pitting or edema. No cyanosis. NEUROLOGICAL: No focal neurological deficits. Moves all extremities spontaneously and on command. PSYCH: Normal mood, normal affect. SKIN: Warm, Dry, normal turgor, no rashes or lesions noted. Patient does have orders for direct admission. Patient's vital signs are nonactionable. He otherwise appears stable at this time. Patient is noted to have a significant anemia. Discussed with Miranda sexton charge nurse for bed placement, discussed with Dr. Matthew, ER attending TRAVEL OUTSIDE OF THE [place] IN LAST 30 DAYS: No - Related Data Allergies/Adverse Reactions: No Known Allergies Allergy (Verified 04/02/19 17:46) Home Medications: moxifloxacin. lotemax. mifedipine. methimazole. clonidine. pravastatin. metoprolol. divalproex. vitamin d. tizandine. asa. voltaren Past Medical History - Social History Chew tobacco use (# tins/day): No Frequency of alcohol use: None Drug Abuse: None Family history: DM, Hypertension, Malignancy - Past Medical History Cardiac Medical History: Reports: Hx Coronary Artery Disease, Hx Hypertension Denies: Hx Heart Attack Pulmonary Medical History: Denies: Hx Asthma, Hx Bronchitis, Hx COPD, Hx Pneumonia Neurological Medical History: Denies: Hx Cerebrovascular Accident, Hx Seizures Endocrine Medical History: Reports: Hx Diabetes Mellitus Type 2, Hx Hyperthyroidism, Hx Hypothyroidism Renal/ Medical History: Reports: Hx Kidney Stones - left kidney cacer and removed protate cancer and removed. Denies: Hx Peritoneal Dialysis Malignancy Medical History: Reports Hx Prostate Cancer, Reports Hx Renal (Kidney) Cancer GI Medical History: Denies: Hx Hepatitis, Hx Hiatal Hernia, Hx Ulcer Musculoskeltal Medical History: Denies Hx Arthritis, Reports Hx Musculoskeletal Deformity, Reports Hx Musculoskeletal Trauma Traumatic Medical History: Reports: Hx Fractures Infectious Medical History: Denies: Hx Hepatitis Past Surgical History: Reports: Hx Kidney (Renal Surgery), Hx Orthopedic Surgery. Denies: Hx Open Heart Surgery, Hx Pacemaker - Immunizations Immunizations up to date: Yes Hx Diphtheria, Pertussis, Tetanus Vaccination: Yes Physical Exam - Vital signs Vitals: Temp Pulse Resp BP Pulse Ox 98.0 F 85 16 123/62 100 04/02/19 16:42 04/02/19 16:42 04/02/19 16:42 04/02/19 16:42 04/02/19 16:42 Course - Vital Signs Vital signs: Temp Pulse Resp BP Pulse Ox 98.0 F 85 16 123/62 100 04/02/19 16:42 04/02/19 16:42 04/02/19 16:42 04/02/19 16:42 04/02/19 16:42 Doctor's Discharge - Discharge Referrals: MAREK CAMP MD [Primary Care Provider] - Follow up as needed
[2019-04-02] MEDS ORDERED: ACETAMINOPHEN 325 MG TABLET PO PRN (19:43)
[2019-04-02] MEDS ORDERED: NORMAL SALINE 250 ML IV PRN ×2 (19:47)
[2019-04-02 20:25] LABS: ANION GAP 7 (5-19); BLOOD UREA NITROGEN 20 mg/dL (7-20); CALCIUM 9.1 mg/dL (8.4-10.2); CARBON DIOXIDE 30 mmol/L (22-30); CHLORIDE 102 mmol/L (98-107); GLUCOSE 89 mg/dL (75-110); POTASSIUM 4.6 mmol/L (3.6-5.0)
[2019-04-03 05:52] LABS: HEMATOCRIT 22.6 % (37.9-51.0); MEAN CORPUSCULAR HEMOGLOBIN 22.9 pg (27.0-33.4); MEAN CORPUSCULAR VOLUME 72 fl (80-97); PLATELET COUNT 304 10^3/uL (150-450); RED BLOOD COUNT 3.15 10^6/uL (4.35-5.55); RED CELL DISTRIBUTION WIDTH 17.7 % (11.5-14.0); WHITE BLOOD COUNT 4.3 10^3/uL (4.0-10.5)
[2019-04-03] MEDS ORDERED: PANTOPRAZOLE SODIUM 40 MG TABLET.DR PO SCH (06:00)
[2019-04-03 06:10] LABS: HEMOGLOBIN 7.2 g/dL (13.5-17.0)
--- NOTE | 2019-04-03 08:49 | PDOC PROGRESS REPORT ---
Subjective Progress Note for:: 04/03/19 Subjective:: Patient is currently doing well patient received the 2 units of the blood denied any complaints Patient was admitted because of the patient's hemoglobin was 6.[address] Tirado's office recently have endoscopy was done remove some polyps from the duodenal area had a colonoscopy done in January was all stable Patient's denied any chest pain no short of breath Denied any blood in the stools no black stools Patient have also history of the constipations with ongoing problems with a history of the chronic back problems history of the memory issues tremor see the neurologist for that Patient is a chronic kidney disease currently see her Dr. Montgomery Reason For Visit: ANEMIA Physical Exam Vital Signs: Temp Pulse Resp BP Pulse Ox 98.2 F 78 20 174/86 H 100 04/03/19 07:58 04/03/19 07:58 04/03/19 07:58 04/03/19 07:58 04/03/19 07:58 Intake & Output 04/02/19 04/03/19 04/04/19 06:59 06:59 06:59 Intake Total 1109 300 Output Total 400 Balance 709 300 Weight 80 kg General appearance: PRESENT: no acute distress, well-developed, well-nourished Head exam: PRESENT: atraumatic, normocephalic Eye exam: PRESENT: conjunctiva pink, EOMI, PERRLA. ABSENT: scleral icterus Ear exam: PRESENT: normal external ear exam Mouth exam: PRESENT: moist, tongue midline Neck exam: PRESENT: full ROM. ABSENT: carotid bruit, JVD, lymphadenopathy, thyromegaly Respiratory exam: PRESENT: clear to auscultation donita Cardiovascular exam: PRESENT: RRR. ABSENT: diastolic murmur, rubs, systolic murmur Pulses: PRESENT: normal dorsalis pedis pul, +2 pedal pulses bilateral Vascular exam: PRESENT: normal capillary refill GI/Abdominal exam: PRESENT: normal bowel sounds, soft. ABSENT: distended, guarding, mass, organolmegaly, rebound, tenderness Rectal exam: PRESENT: deferred Extremities exam: ABSENT: pedal edema Musculoskeletal exam: PRESENT: ambulatory Neurological exam: PRESENT: alert, awake, oriented to person, oriented to place, oriented to time, oriented to situation, CN II-XII grossly intact. ABSENT: motor sensory deficit Psychiatric exam: PRESENT: appropriate affect, normal mood. ABSENT: homicidal ideation, suicidal ideation Skin exam: PRESENT: dry, intact, warm. ABSENT: cyanosis, rash Results Laboratory Results: 04/03/19 05:27 04/02/19 19:21 04/02/19 04/02/19 04/03/19 19:21 20:22 05:27 WBC 4.3 RBC 3.15 L Hgb 7.2 L Hct 22.6 L MCV 72 L MCH 22.9 L MCHC 32.0 RDW 17.7 H Plt Count 304 Sodium 139.0 Potassium 4.6 Chloride 102 Carbon Dioxide 30 Anion Gap 7 BUN 20 Creatinine 1.43 H Est GFR ( Amer) 59 L Glucose 89 Calcium 9.1 Blood Type A POSITIVE Antibody Screen NEGATIVE Assessment & Plan - Diagnosis (1) Anemia Qualifiers: Anemia type: iron deficiency Is this a current diagnosis for this admission?: Yes Plan: With a significant low iron we consult the hematology for further evaluations while patient's recent GI work-up done as per discussed with Dr. Tirado and Dr. Tirado suggest most likely a patients have issue with the possible blood loss from the duodenal area which currently resolved (2) Memory problem Is this a current diagnosis for this admission?: Yes Plan: Patient is currently seeing neurology as outpatients (3) Chronic back pain Qualifiers: Back pain location: low back pain Is this a current diagnosis for this admission?: Yes Plan: Patient is currently see a pain management (4) Hypertension Qualifiers: Hypertension type: essential hypertension Is this a current diagnosis for this admission?: Yes Plan: Continues to current medications (5) Hyperthyroidism Is this a current diagnosis for this admission?: Yes Plan: Continues the methimazole (6) Parkinsonism Qualifiers: Parkinsonism type: Parkinson's disease Is this a current diagnosis for this admission?: Yes Plan: Patient seen by the neurologist - Time Time Spent with patient: 15-24 minutes Level of Care: MEDICAL Medications reviewed and adjusted accordingly: Yes Anticipated discharge: Home Within: Other - Plan Summary Plan Summary: Continues to current medications will wait for the hematology evaluations
--- NOTE | 2019-04-03 09:25 | PDOC CONSULTATION ---
Consultation Consult Date: 04/03/19 Attending physician:: MAREK CAMP Provider Consulted: LUZ MARIA BENITEZ Consult reason:: Anemia History of Present Illness Admission Date/PCP: 04/02/19 20:44 MAREK CAMP MD Patient complains of: Weakness, fatigue History of Present Illness: AMIRA SHERIDAN is a 73 year old male with known history of anemia, patient had hemoglobin of 8.9 back in November and was supposed to see us because he had very low iron levels and we are planning on IV iron and further work-up. Ultimately he was referred to Dr. 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 It was felt that the AVM was the probable cause of the blood loss. However patient has had constipation ongoing for about a year now. No significant weight loss. Past Medical History Cardiac Medical History: Reports: Coronary Artery Disease, Hypertension Denies: Myocardial Infarction Pulmonary Medical History: Denies: Asthma, Bronchitis, Chronic Obstructive Pulmonary Disease (COPD), Pneumonia Neurological Medical History: Denies: Seizures Endocrine Medical History: Reports: Diabetes Mellitus Type 2, Hyperthyroidism, Hypothyroidism Malignancy Medical History: Reports: Renal (Kidney) Cancer GI Medical History: Denies: Hepatitis, Hiatal Hernia Musculoskeltal Medical History: Denies: Arthritis Hematology: Denies: Anemia, Sickle Cell Disease Past Surgical History Past Surgical History: Reports: Orthopedic Surgery Denies: Pacemaker Social History Smoking Status: Never Smoker Electronic Cigarette use?: No Frequency of Alcohol Use: None Hx Recreational Drug Use: No Hx Prescription Drug Abuse: No - Advance Directive Resuscitation Status: Full Code Family History Family History: Reviewed & Not Pertinent Parental Family History Reviewed: Yes Children Family History Reviewed: Yes Sibling(s) Family History Reviewed.: Yes Medication/Allergy Home Medications: Clonidine HCl [Catapres] 0.1 mg PO BID 04/03/19 Divalproex Sodium [Depakote] 250 mg PO BID 04/03/19 Methimazole 10 mg PO DAILY 04/03/19 Metoprolol Tartrate [Lopressor 25 mg Tablet] 25 mg PO Q12 04/03/19 Moxifloxacin HCl [Vigamox 0.5% Oph Soln 3 ml] 0.5 drop OU DAILY 02/07/20 Nifedipine [Nifedipine ER] 60 mg PO DAILY 04/03/19 Pravastatin Sodium 40 mg PO DAILY 04/03/19 Tizanidine HCl [Zanaflex 4 Mg Tablet] 4 mg PO Q8 04/03/19 Allergies/Adverse Reactions: No Known Allergies Allergy (Verified 04/02/19 17:46) Review of Systems Constitutional: ABSENT: chills, fever(s), headache(s), weight gain, weight loss Eyes: ABSENT: visual disturbances Ears: ABSENT: hearing changes Cardiovascular: ABSENT: chest pain, dyspnea on exertion, edema, orthropnea, palpitations Respiratory: ABSENT: cough, hemoptysis Gastrointestinal: ABSENT: abdominal pain, constipation, diarrhea, hematemesis, hematochezia, nausea, vomiting Genitourinary: ABSENT: dysuria, hematuria Musculoskeletal: ABSENT: joint swelling Integumentary: ABSENT: rash, wounds Neurological: ABSENT: abnormal gait, abnormal speech, confusion, dizziness, focal weakness, syncope Psychiatric: ABSENT: anxiety, depression, homidical ideation, suicidal ideation Endocrine: ABSENT: cold intolerance, heat intolerance, polydipsia, polyuria Hematologic/Lymphatic: ABSENT: easy bleeding, easy bruising Physical Exam Vital Signs: Temp Pulse Resp BP Pulse Ox 98.2 F 78 20 174/86 H 100 04/03/19 07:58 04/03/19 07:58 04/03/19 07:58 04/03/19 07:58 04/03/19 07:58 Intake & Output 04/02/19 04/03/19 04/04/19 06:59 06:59 06:59 Intake Total 1109 300 Output Total 400 Balance 709 300 Weight 80 kg General appearance: PRESENT: no acute distress, well-developed, well-nourished Head exam: PRESENT: atraumatic, normocephalic Eye exam: PRESENT: conjunctiva pink, EOMI, PERRLA. ABSENT: scleral icterus Ear exam: PRESENT: normal external ear exam Mouth exam: PRESENT: moist, tongue midline Neck exam: ABSENT: carotid bruit, JVD, lymphadenopathy, thyromegaly Respiratory exam: PRESENT: clear to auscultation donita. ABSENT: rales, rhonchi, wheezes Cardiovascular exam: PRESENT: RRR. ABSENT: diastolic murmur, rubs, systolic murmur Pulses: PRESENT: normal dorsalis pedis pul Vascular exam: PRESENT: normal capillary refill GI/Abdominal exam: PRESENT: normal bowel sounds, soft. ABSENT: distended, guarding, mass, organolmegaly, rebound, tenderness Rectal exam: PRESENT: deferred Extremities exam: PRESENT: full ROM. ABSENT: calf tenderness, clubbing, pedal edema Neurological exam: PRESENT: alert, awake, oriented to person, oriented to place, oriented to time, oriented to situation, CN II-XII grossly intact. ABSENT: motor sensory deficit Psychiatric exam: PRESENT: appropriate affect, normal mood. ABSENT: homicidal ideation, suicidal ideation Skin exam: PRESENT: dry, intact, warm. ABSENT: cyanosis, rash Results Laboratory Results: 04/03/19 05:27 04/02/19 19:21 04/02/19 04/02/19 04/03/19 19:21 20:22 05:27 WBC 4.3 RBC 3.15 L Hgb 7.2 L Hct 22.6 L MCV 72 L MCH 22.9 L MCHC 32.0 RDW 17.7 H Plt Count 304 Sodium 139.0 Potassium 4.6 Chloride 102 Carbon Dioxide 30 Anion Gap 7 BUN 20 Creatinine 1.43 H Est GFR ( Amer) 59 L Glucose 89 Calcium 9.1 Blood Type A POSITIVE Antibody Screen NEGATIVE Assessment & Plan - Diagnosis (1) Anemia Qualifiers: Anemia type: iron deficiency Iron deficiency anemia type: chronic blood loss Qualified Code(s): D50.0 - Iron deficiency anemia secondary to blood loss (chronic) Is this a current diagnosis for this admission?: Yes Plan: 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 - Time Time Spent: 50 to 70 Minutes
[2019-04-03] MEDS ORDERED: (PENDING PHARMACY ID) (Pravastatin Sodium [Pravastatin Sodium] 40 MG) PO SCH (10:00)
[2019-04-03] MEDS ORDERED: METOPROLOL TARTRATE 25 MG TABLET PO SCH (10:00)
[2019-04-03] MEDS ORDERED: (PENDING PHARMACY ID) (Moxifloxacin Hcl 1 DROP) OU SCH (10:00)
[2019-04-03] MEDS ORDERED: DIVALPROEX SODIUM 250 MG TABLET.DR PO SCH (10:00)
[2019-04-03] MEDS ORDERED: CLONIDINE HCL 0.1 MG TABLET PO SCH (10:00)
[2019-04-03] MEDS ORDERED: (PENDING PHARMACY ID) (Nifedipine [Nifedipine Er] 60 MG) PO SCH (10:00)
[2019-04-03] MEDS ORDERED: DOCUSATE SODIUM 100 MG CAPSULE PO SCH (10:00)
[2019-04-03] MEDS ORDERED: (PENDING PHARMACY ID) (Methimazole [Methimazole] 10 MG) PO SCH (10:00)
[2019-04-03] MEDS ORDERED: FERUMOXYTOL (NON-ESRD) 510 MG/NS 100 ML IV ONE ×2 (11:00)
[2019-04-03 11:03] LABS: ABSOLUTE EOSINOPHILS # (AUTO) 0.2 10^3/uL (0.0-0.6); ABSOLUTE LYMPHOCYTES (AUTO) 2.5 10^3/uL (0.5-4.7); ABSOLUTE MONOCYTES (AUTO) 0.4 10^3/uL (0.1-1.4); ABSOLUTE NEUT (AUTO) 1.8 10^3/uL (1.7-8.2); EOSINOPHILS % (AUTO) 4.7 % (0-6); HEMATOCRIT 28.3 % (37.9-51.0); LYMPHOCYTES % (AUTO) 49.9 % (13-45); MEAN CORPUSCULAR HEMOGLOBIN 23.5 pg (27.0-33.4); MEAN CORPUSCULAR VOLUME 73 fl (80-97); MONOCYTES % (AUTO) 8.9 % (3-13); PLATELET COUNT 341 10^3/uL (150-450); RED BLOOD COUNT 3.85 10^6/uL (4.35-5.55); RED CELL DISTRIBUTION WIDTH 17.9 % (11.5-14.0); SEGMENTED NEUTROPHILS % (AUTO) 35.5 % (42-78); TOTAL CELLS COUNTED % (AUTO) 100 %; WHITE BLOOD COUNT 4.9 10^3/uL (4.0-10.5)
[2019-04-03] MEDS ORDERED: ATORVASTATIN CALCIUM 10 MG TABLET PO SCH (12:00)
[2019-04-03] MEDS ORDERED: TIZANIDINE HCL 4 MG TABLET PO SCH (14:00)
[2019-04-03 15:45] VITALS: BP 174/86
--- NOTE | 2019-04-03 16:52 | PDOC DISCHARGE SUMMARY ---
Impression - Admit/DC Date/PCP Admission Date/Primary Care Provider: 04/02/19 20:44 MAREK CAMP MD Discharge Date: 04/03/19 - Discharge Diagnosis (1) Anemia Is this a current diagnosis for this admission?: Yes (2) Memory problem Is this a current diagnosis for this admission?: Yes (3) Chronic back pain Is this a current diagnosis for this admission?: Yes (4) Hypertension Is this a current diagnosis for this admission?: Yes (5) Hyperthyroidism Is this a current diagnosis for this admission?: Yes (6) Parkinsonism Is this a current diagnosis for this admission?: Yes - Additional Information Resuscitation Status: Full Code Discharge Diet: Cardiac Discharge Activity: Activity As Tolerated Referrals: LUZ MARIA BENITEZ MD [ACTIVE STAFF] - 04/15/19 2:15 pm (BE THERE BY 145PM TO DO NEW PATIENT PAPERWORK. BRING INSURANCE CARD, PICTURE ID, LIST OF MEDICATIONS.) MAREK CAMP MD [Primary Care Provider] - 04/10/19 10:30 am () Home Medications: Cephalexin [Keflex] 500 mg PO QID 04/03/19 Ibuprofen [Ibu] 800 mg PO Q6HP PRN 04/03/19 Loteprednol Etabonate [Lotemax] 1 applic OD TID 04/03/19 Moxifloxacin HCl [Vigamox 0.5% Oph Soln 3 ml] 1 drop OS DAILY 04/03/19 Pravastatin Sodium 40 mg PO DAILY 04/03/19 History of Present Illiness History of Present Illness: AMIRA SHERIDAN is a 73 year old male Patient was admitting in the hospital because the doctor ABG call and patient's hemoglobin was 6.8 and decided to admit for the IV blood transfusions Hospital Course Hospital Course: This is a 73-year-old male was brought to the office because Dr. Tirado's office called and said the patient hemoglobin was 6.8 patient otherwise denied any other complaints but because of the hemoglobin is less than 7 decided to admit in the hospital for the blood transfusions Since ferritin and iron was very low seen by the mechanical shop laborer Dr. Madan galvan Patient is received the 2 units of the blood and hemoglobin reached 9 is denied any blood in the stools no black stools no other complaints Patient is otherwise other medical problem is all stable Patient will have endoscopy and colonoscopy done by Dr. Tirado most likely diagnosed with the angiodysplasia which is a source of the bleeding Patient is to follow outpatients hematology and gastroenterology's and follow in office in 1 week discussed with the patient's regarding the patient's current conditions Physical Exam Vital Signs: Temp Pulse Resp BP Pulse Ox 97.8 F 74 16 174/86 H 100 04/03/19 15:42 04/03/19 15:42 04/03/19 15:42 04/03/19 15:42 04/03/19 15:42 Intake & Output 04/02/19 04/03/19 04/04/19 06:59 06:59 06:59 Intake Total 1109 800 Output Total 400 300 Balance 709 500 Weight 80 kg General appearance: PRESENT: no acute distress, well-developed, well-nourished Head exam: PRESENT: atraumatic, normocephalic Eye exam: PRESENT: conjunctiva pink, EOMI, PERRLA. ABSENT: scleral icterus Ear exam: PRESENT: normal external ear exam Mouth exam: PRESENT: moist, tongue midline Neck exam: ABSENT: carotid bruit, JVD, lymphadenopathy, thyromegaly Respiratory exam: PRESENT: clear to auscultation donita. ABSENT: rales, rhonchi, wheezes Cardiovascular exam: PRESENT: RRR. ABSENT: diastolic murmur, rubs, systolic murmur Pulses: PRESENT: normal dorsalis pedis pul Vascular exam: PRESENT: normal capillary refill GI/Abdominal exam: PRESENT: normal bowel sounds, soft. ABSENT: distended, guarding, mass, organolmegaly, rebound, tenderness Rectal exam: PRESENT: deferred Extremities exam: PRESENT: full ROM. ABSENT: calf tenderness, clubbing, pedal edema Neurological exam: PRESENT: alert, awake, oriented to person, oriented to place, oriented to time, oriented to situation, CN II-XII grossly intact. ABSENT: motor sensory deficit Psychiatric exam: PRESENT: appropriate affect, normal mood. ABSENT: homicidal ideation, suicidal ideation Skin exam: PRESENT: dry, intact, warm. ABSENT: cyanosis, rash Results Laboratory Results: WBC 4.9 10^3/uL (4.0-10.5) 04/03/19 10:25 RBC 3.85 10^6/uL (4.35-5.55) L 04/03/19 10:25 Hgb 9.0 g/dL (13.5-17.0) L 04/03/19 10:25 Hct 28.3 % (37.9-51.0) L 04/03/19 10:25 MCV 73 fl (80-97) L 04/03/19 10:25 MCH 23.5 pg (27.0-33.4) L 04/03/19 10:25 MCHC 32.0 g/dL (32.0-36.0) 04/03/19 10:25 RDW 17.9 % (11.5-14.0) H 04/03/19 10:25 Plt Count 341 10^3/uL (150-450) 04/03/19 10:25 Lymph % (Auto) 49.9 % (13-45) H 04/03/19 10:25 Wilbarger % (Auto) 8.9 % (3-13) 04/03/19 10:25 Eos % (Auto) 4.7 % (0-6) 04/03/19 10:25 Baso % (Auto) 1.0 % (0-2) 04/03/19 10:25 Absolute Neuts (auto) 1.8 10^3/uL (1.7-8.2) 04/03/19 10:25 Absolute Lymphs (auto) 2.5 10^3/uL (0.5-4.7) 04/03/19 10:25 Absolute Monos (auto) 0.4 10^3/uL (0.1-1.4) 04/03/19 10:25 Absolute Eos (auto) 0.2 10^3/uL (0.0-0.6) 04/03/19 10:25 Absolute Basos (auto) 0.0 10^3/uL (0.0-0.2) 04/03/19 10:25 Seg Neutrophils % 35.5 % (42-78) L 04/03/19 10:25 Sodium 139.0 mmol/L (137-145) 04/02/19 19:21 Potassium 4.6 mmol/L (3.6-5.0) 04/02/19 19:21 Chloride 102 mmol/L (98-107) 04/02/19 19:21 Carbon Dioxide 30 mmol/L (22-30) 04/02/19 19:21 Anion Gap 7 (5-19) 04/02/19 19:21 BUN 20 mg/dL (7-20) 04/02/19 19:21 Creatinine 1.43 mg/dL (0.52-1.25) H 04/02/19 19:21 Est GFR ( Amer) 59 (>60) L 04/02/19 19:21 Est GFR (MDRD) Non-Af 49 (>60) L 04/02/19 19:21 Glucose 89 mg/dL (75-110) 04/02/19 19:21 Calcium 9.1 mg/dL (8.4-10.2) 04/02/19 19:21 Blood Type A POSITIVE 04/02/19 20:22 Blood Type Confirm A POSITIVE 04/02/19 22:37 Antibody Screen NEGATIVE 04/02/19 20:22 Crossmatch See Detail 04/02/19 20:22 Plan Time Spent: Greater than 30 Minutes - Follow-up with the hematology Stroke Is this a Stroke Patient?: No Acute Heart Failure - Is this a Heart Failure Patient?: No
--- NOTE | 2019-04-06 13:44 | PDOC H&P ---
History of Present Illness Admission Date/PCP: 04/02/19 20:44 MAREK CAMP MD Patient complains of: Anemia History of Present Illness: AMIRA SHERIDAN is a 73 year old male Patient was admitting in the hospital because the doctor ABG call and patient's hemoglobin was 6.8 and decided to admit for the IV blood transfusions Past Medical History Cardiac Medical History: Reports: Coronary Artery Disease, Hypertension Denies: Myocardial Infarction Pulmonary Medical History: Denies: Asthma, Bronchitis, Chronic Obstructive Pulmonary Disease (COPD), Pneumonia Neurological Medical History: Denies: Seizures Endocrine Medical History: Reports: Diabetes Mellitus Type 2, Hyperthyroidism, Hypothyroidism Malignancy Medical History: Reports: Renal (Kidney) Cancer GI Medical History: Denies: Hepatitis, Hiatal Hernia Musculoskeltal Medical History: Denies: Arthritis Hematology: Denies: Anemia, Sickle Cell Disease Past Surgical History Past Surgical History: Reports: Orthopedic Surgery Denies: Pacemaker Social History Information Source: Patient Smoking Status: Never Smoker Electronic Cigarette use?: No Frequency of Alcohol Use: None Hx Recreational Drug Use: No Hx Prescription Drug Abuse: No - Advance Directive Resuscitation Status: Full Code Family History Family History: Reviewed & Not Pertinent Parental Family History Reviewed: Yes Children Family History Reviewed: Yes Sibling(s) Family History Reviewed.: Yes Medication/Allergy Home Medications: Cephalexin [Keflex] 500 mg PO QID 04/03/19 Ibuprofen [Ibu] 800 mg PO Q6HP PRN 04/03/19 Loteprednol Etabonate [Lotemax] 1 applic OD TID 04/03/19 Moxifloxacin HCl [Vigamox 0.5% Oph Soln 3 ml] 1 drop OS DAILY 04/03/19 Pravastatin Sodium 40 mg PO DAILY 04/03/19 Allergies/Adverse Reactions: No Known Allergies Allergy (Verified 04/02/19 17:46) Review of Systems Constitutional: ABSENT: chills, fever(s), headache(s), weight gain, weight loss Eyes: ABSENT: visual disturbances Ears: ABSENT: hearing changes Cardiovascular: ABSENT: chest pain, dyspnea on exertion, edema, orthropnea, palpitations Respiratory: ABSENT: cough, hemoptysis Gastrointestinal: ABSENT: abdominal pain, constipation, diarrhea, hematemesis, hematochezia, nausea, vomiting Genitourinary: ABSENT: dysuria, hematuria Musculoskeletal: ABSENT: joint swelling Integumentary: ABSENT: rash, wounds Neurological: ABSENT: abnormal gait, abnormal speech, confusion, dizziness, focal weakness, syncope Psychiatric: ABSENT: anxiety, depression, homidical ideation, suicidal ideation Endocrine: ABSENT: cold intolerance, heat intolerance, menstrual abnormalities, polydipsia, polyuria Hematologic/Lymphatic: ABSENT: easy bleeding, easy bruising, lymphadenopathy Physical Exam Vital Signs: Temp Pulse Resp BP Pulse Ox 97.8 F 74 16 174/86 H 100 04/03/19 15:42 04/03/19 15:42 04/03/19 15:42 04/03/19 15:42 04/03/19 15:42 General appearance: PRESENT: no acute distress, well-developed, well-nourished Head exam: PRESENT: atraumatic, normocephalic Eye exam: PRESENT: conjunctiva pink, EOMI, PERRLA. ABSENT: scleral icterus Ear exam: PRESENT: normal external ear exam Mouth exam: PRESENT: moist, tongue midline Neck exam: PRESENT: full ROM. ABSENT: carotid bruit, JVD, lymphadenopathy, thyromegaly Respiratory exam: PRESENT: clear to auscultation donita Cardiovascular exam: PRESENT: RRR. ABSENT: diastolic murmur, rubs, systolic murmur Pulses: PRESENT: normal dorsalis pedis pul, +2 pedal pulses bilateral Vascular exam: PRESENT: normal capillary refill GI/Abdominal exam: PRESENT: normal bowel sounds, soft. ABSENT: distended, guarding, mass, organolmegaly, rebound, tenderness Rectal exam: PRESENT: deferred Musculoskeletal exam: PRESENT: ambulatory Neurological exam: PRESENT: alert, awake, oriented to person, oriented to place, oriented to time, oriented to situation, CN II-XII grossly intact. ABSENT: motor sensory deficit Psychiatric exam: PRESENT: appropriate affect, normal mood. ABSENT: homicidal ideation, suicidal ideation Skin exam: PRESENT: dry, intact, warm. ABSENT: cyanosis, rash Results Laboratory Results: 04/03/19 10:25 04/02/19 19:21 Assessment & Plan - Diagnosis (1) Anemia Qualifiers: Anemia type: iron deficiency Iron deficiency anemia type: chronic blood loss Qualified Code(s): D50.0 - Iron deficiency anemia secondary to blood loss (chronic) Is this a current diagnosis for this admission?: Yes Plan: Admit the patient's as per discussed with Dr. Tirado and hematology to give a blood transfusion and iron studiesPatient is currently not actively bleeding's Dr. Tirado will follow outpatients for further evaluations will recently have endoscopy and colonoscopy done (2) Memory problem Is this a current diagnosis for this admission?: Yes Plan: Is currently see the neurology as outpatient (3) Chronic back pain Qualifiers: Back pain location: low back pain Is this a current diagnosis for this admission?: Yes Plan: Currently all stable (4) Hypertension Qualifiers: Hypertension type: essential hypertension Is this a current diagnosis for this admission?: Yes Plan: Continues to current medications (5) Hyperthyroidism Is this a current diagnosis for this admission?: Yes (6) Parkinsonism Qualifiers: Parkinsonism type: Parkinson's disease Is this a current diagnosis for this admission?: Yes - Time Time Spent: 30 to 50 Minutes Medications reviewed and adjusted accordingly: Yes Anticipated discharge: Home Within: Other - Inpatient Certification Based on my medical assessment, after consideration of the patient's comorbiditi es, presenting symptoms, or acuity I expect that the services needed warrant INPATIENT care.: Yes I certify that my determination is in accordance with my understanding of [facility]'s requirements for reasonable and necessary INPATIENT services [42 CFR 412.3e].: Yes Medical Necessity: Need Close Monitoring Due to Risk of Patient Decompensation, Risk of Complication if Not Cared For in Hospital Post Hospital Care: D/C Laboratory Director Documentation - Plan Summary Plan Summary: Admit the patient in the medical floor transfuse her 2 units of blood consult the hematology
== END 2019-04-03 16:28 | disposition home or self-care (01) | DRG 812 ==
LOC: ER 16:36 → UNDOADMIN 20:31 → EH 20:31 → 4S 22:00
PROVIDERS: ADMIT Family Medicine; ATTEND Family Medicine
PROC: 30233N1 Transfusion of Nonautologous Red Blood Cells into Peripheral Vein, Percutaneous Approach (ICD-10-PCS; principal; 2019-04-03)
DX: D50.0 Iron deficiency anemia secondary to blood loss (chronic) (principal); I25.10 Atherosclerotic heart disease of native coronary artery without angina pectoris; M54.5 Low back pain; G89.29 Other chronic pain; E05.90 Thyrotoxicosis, unspecified without thyrotoxic crisis or storm; G20 Parkinson's disease; F02.80 Dementia in other diseases classified elsewhere, unspecified severity, without behavioral disturbance, psychotic disturbance, mood disturbance, and anxiety; I12.9 Hypertensive chronic kidney disease with stage 1 through stage 4 chronic kidney disease, or unspecified chronic kidney disease; N18.9 Chronic kidney disease, unspecified; E11.22 Type 2 diabetes mellitus with diabetic chronic kidney disease; Z85.528 Personal history of other malignant neoplasm of kidney; Z86.010 Personal history of colon polyps
CPT/HCPCS: 36415; 36430; 80048; 85027; 86850; 86900; 86901; 86920; J3490; J7050; P9016; Q0138

== ENCOUNTER → 2019-04-02 | Outpatient (CLI) | payer OTHER, BC ==
[2019-04-02 11:13] LABS: HEMATOCRIT 22.5 % (37.9-51.0); MEAN CORPUSCULAR HEMOGLOBIN 21.6 pg (27.0-33.4); MEAN CORPUSCULAR HGB CONC 30.5 g/dL (32.0-36.0); PLATELET COUNT 367 10^3/uL (150-450); RED BLOOD COUNT 3.16 10^6/uL (4.35-5.55); RED CELL DISTRIBUTION WIDTH 17.6 % (11.5-14.0); WHITE BLOOD COUNT 4.7 10^3/uL (4.0-10.5)
[2019-04-02 12:06] LABS: FERRITIN 7.65 ng/mL (17.9-464.0)
[2019-04-02 12:11] LABS: IRON(TIBC) < 10.1 ug/dL (49-181)
[2019-04-02 13:07] LABS: HEMOGLOBIN 6.8 g/dL (13.5-17.0)
[2019-04-02 13:11] LABS: MEAN CORPUSCULAR VOLUME 71 fl (80-97)
== END ==
LOC: LAB 10:56
PROVIDERS: ATTEND Internal Medicine Gastroenterology
DX: D50.0 Iron deficiency anemia secondary to blood loss (chronic) (principal)
CPT/HCPCS: 36415; 82728; 83540; 83550; 85027

== ENCOUNTER → 2019-04-10 | Outpatient (CLI) | payer OTHER, MEDICARE, BC ==
[2019-04-10 14:18] LABS: FREE T4 (FREE THYROXINE) 1.53 ng/dL (0.78-2.19)
[2019-04-10 14:40] LABS: THYROID STIMULATING HORMONE < 0.01 uIU/mL (0.47-4.68)
== END ==
LOC: LAB 12:09
PROVIDERS: ATTEND Family Medicine
DX: E05.90 Thyrotoxicosis, unspecified without thyrotoxic crisis or storm (principal); K29.70 Gastritis, unspecified, without bleeding
CPT/HCPCS: 36415; 84439; 84443; 86677

== ENCOUNTER 2019-07-29 11:30 | Day surgery (SDC) | payer OTHER, MEDICARE, BC ==
[~2019-07-29 11:30] MED LIST changes: -BUPIVACAINE HCL 0.75% INJ/PF (7.5 MG/1 ML) 10 ML SDV OD PRN; -CHONDR SU A NA/HYALUR INTRAOC KIT (SURGICARE) ONE; -DORZOLAMIDE HCL 2%/TIMOLOL MALEAT 0.5% OPH SOLN 10 ML OD PRN; -EPINEPHRINE INJ/PF 1 MG/1 ML AMPULE ONE; -KETOROLAC TROMETHAMINE 0.45% 4 DROP/0.4 ML DROPERETTE OD PRN; +KETOROLAC TROMETHAMINE 0.45% 4 DROP/0.4 ML DROPERETTE OS PRN; -LIDOCAINE 1%/PHENYLEPHRINE 1.5% 1 ML VIAL ONE; -LIDOCAINE 4% INJ/PF (40 MG/ML) 5 ML AMPUL OD PRN
[2019-07-29] MEDS: CYCLOPENTOLATE 0.2%/PHENYLEPHRINE 1% OPH SOLN 2 ML OS PRN ×3 (11:49→12:09)
[2019-07-29] MEDS: TROPICAMIDE 1% OPH SOLN 15 ML OS PRN ×3 (11:49→12:09)
[2019-07-29] MEDS: BESIFLOXACIN HCL 0.6% OPH SUSP 5 ML BOTTLE OS PRN ×4 (11:49→13:42)
[2019-07-29] MEDS: TETRACAINE HCL 0.5% OPH SOLN 4 ML OS PRN ×4 (11:50→13:24)
[2019-07-29] MEDS ORDERED: MIDAZOLAM 2 MG/2 ML INJ ONE (12:23)
[2019-07-29] MEDS: LIDOCAINE 1%/PHENYLEPHRINE 1.5% 1 ML VIAL ONE ×2 (13:34)
[2019-07-29] MEDS: EPINEPHRINE INJ/PF 1 MG/1 ML AMPULE ONE ×2 (13:34)
[2019-07-29] MEDS ORDERED: METOPROLOL TARTRATE PF/INJ 5 MG/5 ML SDV IV ONE (13:34)
[2019-07-29] MEDS: CHONDR SU A NA/HYALUR INTRAOC KIT (SURGICARE) ONE ×2 (13:34)
[2019-07-29] MEDS ORDERED: LIDOCAINE 1%/PHENYLEPHRINE 1.5% 1 ML VIAL ONE (13:34)
[2019-07-29] MEDS: DORZOLAMIDE HCL 2%/TIMOLOL MALEAT 0.5% OPH SOLN 10 ML OS PRN ×2 (13:42)
--- NOTE | 2019-07-29 13:49 | Operative Report ---
Operative Report-[facility] Operative Report: DATE OF SURGERY: July 29, 2019 PREOPERATIVE DIAGNOSIS: NUCLEAR CATARACT, LEFT EYE. POSTOPERATIVE DIAGNOSIS: NUCLEAR CATARACT, LEFT EYE. PROCEDURE PERFORMED: PHACOEMULSIFICATION WITH POSTERIOR CHAMBER INTRAOCULAR LENS IMPLANT, LEFT EYE. SURGEON: Castillo Hinojosa DO MEDICATIONS AND ANESTHESIA: Versed: IV Versed Tetracaine drops: 1 to 2 drops given as needed COMPLICATION: None INDICATIONS FOR SURGERY: Medical necessity: Best corrected visual acuity worse than 20/40 secondary to cataracts with impairment of ability to carry out needs or desired activities, blurred vision, visual distortion, reduced contrast sensitivity and/or glare with association functional impairment and supporting documentation/testing, and cataracts causing symptomatic impairment of visual functions not corrected with tolerable changes in glasses or contact lenses interfering with activities of daily life. PROCEDURE: Consent: The risks, benefits and alternatives of this procedures was discussed with the patient. The patient read and signed the consent forms, was identified and was seated in the exam chair. IOL: MX 60 E 22.5 IOL Diopters: Phacoemulsification with posterior chamber intraocular lens implant: The face was prepped with 5% povidone iodine solution, and a few drops of 5% povidone iodine solution was instilled into the inferior fornix. A non-fenestrated drape was placed over the eye and the lids were parted with the speculum. A paracentesis was made with a 15 degree blade, and 1% lidocaine MPF followed by viscoelastic was injected into the anterior chamber. A 2.4 mm metal micro- keratome was used to create a temporal clear corneal incision. A circular anterior capsulorrhexis was created, followed by hydro-dissection and hydro- delineation. The phacoemulsification hand piece was inserted and the nucleus was removed with the Phaco chop technique. The irrigation-aspiration hand piece was used to remove the residual cortex, and vacuum the posterior capsule. The capsular bag was inflated and viscoelastic and the above-mentioned IOL was injected into the eye with care to insert both leaning and trailing haptics in the capsular bag. The irrigation/aspiration hand piece was reinserted to remove residual viscoelastic from the capsular bag and anterior chamber. The corneal incision was hydrated, and anterior chamber was inflated with sterile BSS via the paracentesis site, and found to be watertight. Postop medication:1 drop of prednisolone into operative by followed by 1 drop of Cosopt into operative eye followed by 1 drop of Besivance intraoperative by Other:
== END 2019-07-29 14:14 | disposition home or self-care (01) ==
LOC: SC 11:30
PROVIDERS: ATTEND Ophthalmology
DX: H25.12 Age-related nuclear cataract, left eye (principal); Z98.41 Cataract extraction status, right eye; Z79.82 Long term (current) use of aspirin; Z79.899 Other long term (current) drug therapy; I10 Essential (primary) hypertension; E05.90 Thyrotoxicosis, unspecified without thyrotoxic crisis or storm; Z85.46 Personal history of malignant neoplasm of prostate; Z85.528 Personal history of other malignant neoplasm of kidney
CPT/HCPCS: 66984; V2632; J2250; J3490 ×3; J0171; 142

== ENCOUNTER → 2019-11-05 | Outpatient (CLI) | payer OTHER, BC ==
--- NOTE | 2019-11-05 14:24 | RADIOLOGY REPORT (SQ) ---
EXAM DESCRIPTION: CT ABD/PELVIS NO ORAL OR IV IMAGES COMPLETED DATE/TIME: 11/05/2019 1:47 pm REASON FOR STUDY: N18.3 CHRONIC KIDNEY DISEASE, STAGE 3 (MODERATE), N28.1 CYST OF KIDNEY, ACQ N18.3 CHRONIC KIDNEY DISEASE, STAGE 3 (MODERATE) N28.1 CYST OF KIDNEY, ACQUIRED COMPARISON: 10/17/2016 TECHNIQUE: CT scan of the abdomen and pelvis performed without intravenous or oral contrast. Images reviewed with lung, soft tissue, and bone windows. Reconstructed coronal and sagittal MPR images revi ewed. All images stored on PACS. All CT scanners at this facility use dose modulation, iterative reconstruction, and/or weight based d osing when appropriate to reduce radiation dose to as low as reasonably achievable (ALARA). [facility]: Dose Right [facility]: CareDose [facility]: Dose Right [facility]: Teradose 4D [facility]: [employer] RADIATION DOSE: CT Rad equipment meets quality standard of care and radiation dose reduction techniq ues were employed. CTDIvol: 5.9 mGy. DLP: 302 mGy-cm.mGy. LIMITATIONS: None. FINDINGS: LOWER CHEST: Small calcified granuloma left lower lobe. NON-CONTRASTED LIVER, SPLEEN, ADRENALS: Small liver cysts. PANCREAS: No masses. No peripancreatic inflammatory changes. GALLBLADDER: No identified stones by CT criteria. No inflammatory changes to suggest cholecystitis. RIGHT KIDNEY AND URETER: No suspicious masses. Assessment limited by lack of IV contrast. Mild medu llary nephrocalcinosis. No hydronephrosis or hydroureter. LEFT KIDNEY AND URETER: Surgically absent. AORTA AND RETROPERITONEUM: No aneurysm. No retroperitoneal masses or adenopathy. BOWEL AND PERITONEAL CAVITY: No obvious masses or inflammatory changes. No free fluid. APPENDIX: Not visualized. PELVIS, BLADDER, AND ABDOMINAL WALL:No abnormal masses. No free fluid. Bladder normal. BONES: No significant findings. OTHER: No other significant finding. IMPRESSION: No right renal mass identified. COMMENT: Quality ID # [id number]: Final reports with documentation of one or more dose reduction techniques (e.g., Automated exposure control, adjustment of the mA and/or kV according to patient size, use of iterative reconstruction technique) TECHNICAL DOCUMENTATION: JOB ID: [id number] 2010 [employer]- All Rights Reserved Reading location - IP/workstation name: [email or web address]
== END ==
LOC: RAD 13:30
PROVIDERS: ATTEND Internal Medicine Nephrology
DX: C61 Malignant neoplasm of prostate (principal); N18.3 Chronic kidney disease, stage 3 (moderate); N28.1 Cyst of kidney, acquired
CPT/HCPCS: 74176